=== PATIENT | female | born 1945 | race African-American/Black ===

== ENCOUNTER 2017-03-11 11:57 | Observation (INO) ==
--- NOTE | 2017-03-11 14:08 | Emergency Department Note ---
Disposition Clinical Impression: Chest pain Qualifiers: Chest pain type: unspecified Qualified Code(s): R07.9 - Chest pain, unspecified Disposition: Admitted As Inpatient Condition: Fair Referrals: Anatoliy Parra MD [Primary Care Provider] - Forms: ED Satisfaction Letter Time of Disposition: 15:47 General Adult HPI - General Chief complaint: ED Chest Pain Stated complaint: Chest/abd pain Time Seen by Provider: 03/11/17 13:39 Source: patient Limitations: no limitations Nursing Notes Reviewed: Yes Vital Signs Reviewed: Yes - History of Present Illness HPI Narrative: 71-year-old who was at work today became diaphoretic and was having chest pain. The patient states she's not had a stress test in the past. She also states she' s been having trouble swallowing food had a similar problem back in 2013 and is actually being scheduled to see GI for evaluation. She also states she had severe abdominal pain last night and is concerned as there is a family history of aneurysm. Pt Subjective Complaint: Chest pain and abdominal pain Onset (ago): Just [employer] Location: chest, abdomen Radiation: non-radiation Pain Severity: moderate Pain Scale: 6 Quality: aching Consistency: constant Improves with: nothing Worsens with: nothing Associated symptoms: Reports: chest pain Treatments Prior to Arrival: none - Related Data Allergies Allergy/AdvReac Type Severity Reaction Status Date / Time No Known Allergies Allergy Verified 03/11/17 12:26 All systems ED: reviewed and negative except as stated. Constitutional: Denies: fever, chills, weakness, weight change Eyes: Denies: eye pain, eye discharge, vision change ENT ED: Denies: ear pain, throat pain, dental pain, hearing loss, epistaxis, congestion, dysphagia Cardiovascular: Reports: chest pain. Denies: palpitations, dyspnea on exertion , edema, syncope Respiratory: Denies: cough, dyspnea, wheezes, hemoptysis, stridor Gastrointestinal: Reports: abdominal pain. Denies: nausea, vomiting, diarrhea, constipation, hematemesis, melena, hematochezia Genitourinary: Denies: dysuria, frequency, hematuria, discharge Musculoskeletal: Denies: back pain, neck pain, arthralgia, myalgia Integumentary: Denies: rash, abrasion, lesions Neurological: Denies: headache, weakness, numbness, paresthesias, confusion, abnormal gait, vertigo Psychiatric: Denies: anxiety, depression, suicidal thoughts, homicidal thoughts , auditory hallucinations, visual hallucinations Endocrine: Denies: fatigue Hematological/Lymphatic: Denies: easy bleeding, easy bruising Allergic/Immunologic: Denies: facial swelling, urticaria Past Medical History - Past Medical History Medical history: Reports: diabetes, hyperlipidemia, hypertension, renal disease Psychiatric history: Reports: no psych history - Social History Smoking Status: Never smoker Smokeless Tobacco Status: No Alcohol use: Reports: none Drug use: Reports: none Physical Exam - General Limitations: no limitations General appearance: alert - Head Head exam: atraumatic, normocephalic, normal inspection - Eye Eye exam: Present: normal appearance, PERRL, EOMI - ENT ENT exam: normal exam, normal oropharynx, mucous membranes moist - Neck Neck exam: Present: normal inspection, full ROM, trachea midline - Chest Chest inspection: Present: normal inspection, symmetric chest wall rise - Respiratory Respiratory exam: Present: normal lung sounds bilaterally - Cardiovascular Cardiovascular exam: Present: regular rate, normal rhythm, normal heart sounds - Abdominal Exam Abdominal exam: Present: soft, Non-Tender. Absent: tenderness, distention, guarding, rebound, rigidity, pulsatile mass - Extremities Exam Extremities exam: Present: normal inspection, full ROM. Absent: tenderness, pedal edema - Expanded Lower Extremity Exam Neurovascular/Tendon exam: Absent: motor deficit, sensory deficit, tendon deficit Gait: observed and normal - Back Exam Back exam: Present: normal inspection, full ROM. Absent: tenderness - Neurological Exam Neurological exam: Present: alert, oriented X3 - Psychiatric Psychiatric exam: Present: normal affect, normal mood - Skin Skin exam: Present: warm, dry, intact, normal color Course - Reevaluation(s) Reevaluation #1: 71-year-old with diabetes with with chest pain. Workup here is negative. We will admit. Time: 16:13 Vital Signs Temperature 98.4 F 03/11/17 12:21 Pulse Rate 74 03/11/17 12:21 Respiratory Rate 18 03/11/17 12:21 Blood Pressure 173/99 03/11/17 12:21 O2 Sat by Pulse Oximetry 94 03/11/17 12:21 Temperature 98.4 F 03/11/17 12:21 Pulse Rate 57 03/11/17 13:51 Respiratory Rate 15 03/11/17 13:51 Blood Pressure 161/101 03/11/17 13:51 O2 Sat by Pulse Oximetry 98 03/11/17 13:51 Oxygen Delivery Oxygen Delivery Room Air Medical Decision Making - Lab Data Lab results reviewed: Yes I reviewed the patient's lab results. Result diagrams: 03/11/17 13:50 03/11/17 13:50 Lab Results 03/11/17 03/11/17 03/11/17 Range/Units 13:49 13:50 13:50 WBC 13.0 H (4.3-11.1) K/mcL RBC 4.91 (3.82-4.97) M/mcL Hgb 14.3 (11.5-15.4) g/dL Hct 45.5 H (35.3-44.9) % MCV 92.7 (83.0-100.0) fL MCH 29.1 (28.0-33.3) pg MCHC 31.4 L (31.6-35.5) g/dL RDW 13.7 (11.5-14.5) % Plt Count 299 (140-400) K/mcL MPV 11.2 (9.4-12.4) fL Immature Gran % 0.6 (0-4) % Seg Neutrophils % 75.9 % Lymphocytes % 17.3 % Monocytes % 4.5 % Eosinophils % 1.2 % Basophils % 0.5 % Neutrophils # 9.9 H (1.6-8.9) K/mcL Lymphocytes # 2.2 (0.6-4.6) K/mcL Monocytes # 0.6 (0.0-1.3) K/mcL Eosinophils # 0.2 (0.0-0.6) K/mcL Basophils # 0.1 (0.0-0.2) K/mcL Sodium 139 (136-145) mEq/L Potassium 3.6 (3.5-5.1) mEq/L Chloride 108 H (98-107) mEq/L Carbon Dioxide 25 (23-29) mEq/L BUN 12 (8-23) mg/dL Creatinine 1.10 (0.60-1.20) mg/dL Est GFR ( Amer) 60 (> 60) Est GFR (Non-Af Amer) 49 L (> 60) BUN/Creatinine Ratio 11 (6-26) Glucose 80 (70-105) mg/dL Calculated Osmolality 287 (280-300) Calcium 9.5 (8.6-10.3) mg/dL Total Bilirubin 0.4 (0.3-1.0) mg/dL Direct Bilirubin 0.1 (0.0-0.2) mg/dL Indirect Bilirubin 0.3 (0.0-1.2) mg/dL AST 16 (13-39) Units/L ALT 9 (7-52) Units/L Alkaline Phosphatase 94 (34-104) Units/L Troponin I (< 0.04) ng/mL Serum Total Protein 7.9 (6.4-8.9) g/dL Albumin 4.3 (3.5-5.7) g/dL Globulin 3.6 H (2.4-3.5) g/dL Albumin/Globulin Ratio 1.2 (1.1-2.2) Amylase 44 (29-103) Units/L Lipase 31 (11-82) Units/L Urine Color Yellow (Yellow) Urine Clarity Clear (Clear) Urine pH 6.0 (5.0-8.0) pH Units Ur Specific [place] 1.015 (1.010-1.025) Urine Protein 30 H (Neg-Trace) mg/dL Urine Glucose (UA) Normal (Normal) mg/dL Urine Ketones Negative (Negative) mg/dL Urine Blood Negative (Negative) Urine Nitrite Negative (Negative) Urine Bilirubin Negative (Negative) Urine Urobilinogen Normal (Normal) mg/dL Ur Leukocyte Esterase Negative (Negative) Urine Microscopic RBC 0-3 (0-3) per hpf Urine Microscopic WBC 0-3 (0-3) per hpf Ur Squamous Epith Cells Many H (None-Few) per lpf Urine Bacteria None Seen (None-Few) per hpf Hyaline Casts None Seen (None-Few) per lpf Ur Culture Indicated? NO (NO) 03/11/17 Range/Units 13:50 WBC (4.3-11.1) K/mcL RBC (3.82-4.97) M/mcL Hgb (11.5-15.4) g/dL Hct (35.3-44.9) % MCV (83.0-100.0) fL MCH (28.0-33.3) pg MCHC (31.6-35.5) g/dL RDW (11.5-14.5) % Plt Count (140-400) K/mcL MPV (9.4-12.4) fL Immature Gran % (0-4) % Seg Neutrophils % % Lymphocytes % % Monocytes % % Eosinophils % % Basophils % % Neutrophils # (1.6-8.9) K/mcL Lymphocytes # (0.6-4.6) K/mcL Monocytes # (0.0-1.3) K/mcL Eosinophils # (0.0-0.6) K/mcL Basophils # (0.0-0.2) K/mcL Sodium (136-145) mEq/L Potassium (3.5-5.1) mEq/L Chloride (98-107) mEq/L Carbon Dioxide (23-29) mEq/L BUN (8-23) mg/dL Creatinine (0.60-1.20) mg/dL Est GFR ( Amer) (> 60) Est GFR (Non-Af Amer) (> 60) BUN/Creatinine Ratio (6-26) Glucose (70-105) mg/dL Calculated Osmolality (280-300) Calcium (8.6-10.3) mg/dL Total Bilirubin (0.3-1.0) mg/dL Direct Bilirubin (0.0-0.2) mg/dL Indirect Bilirubin (0.0-1.2) mg/dL AST (13-39) Units/L ALT (7-52) Units/L Alkaline Phosphatase (34-104) Units/L Troponin I < 0.03 (< 0.04) ng/mL Serum Total Protein (6.4-8.9) g/dL Albumin (3.5-5.7) g/dL Globulin (2.4-3.5) g/dL Albumin/Globulin Ratio (1.1-2.2) Amylase (29-103) Units/L Lipase (11-82) Units/L Urine Color (Yellow) Urine Clarity (Clear) Urine pH (5.0-8.0) pH Units Ur Specific [place] (1.010-1.025) Urine Protein (Neg-Trace) mg/dL Urine Glucose (UA) (Normal) mg/dL Urine Ketones (Negative) mg/dL Urine Blood (Negative) Urine Nitrite (Negative) Urine Bilirubin (Negative) Urine Urobilinogen (Normal) mg/dL Ur Leukocyte Esterase (Negative) Urine Microscopic RBC (0-3) per hpf Urine Microscopic WBC (0-3) per hpf Ur Squamous Epith Cells (None-Few) per lpf Urine Bacteria (None-Few) per hpf Hyaline Casts (None-Few) per lpf Ur Culture Indicated? (NO) - Radiology Data Radiology results reviewed: Yes I reviewed the patient's radiology results. Chest X-Ray 03/11/17 12:26 IMPRESSION: No acute findings D/ / Citlaly Mcgrath MD / Citlaly Mcgrath MD Interpreting Provider: Citlaly Mcgrath MD Abdomen/Pelvis CT 03/11/17 14:05 IMPRESSION: 1. No acute finding in the abdomen or pelvis to account for patient's abdominal pain. 2. Atrophic left kidney. 3. Sigmoid diverticulosis. No evidence of diverticulitis. D/ / 03/11/2017 14:45:33 Samuel Gray MD / joanne Interpreting Provider: Samuel Gray MD - EKG Data EKG #1 EKG attestation: Yes I reviewed and interpreted this EKG. EKG shows normal: sinus rhythm Rate: normal Rhythm: NSR Interpretation: no acute changes
[2017-03-11 14:09] LABS: Basophils # 0.1 K/mcL (0.0-0.2); Basophils % 0.5 %; Eosinophils # 0.2 K/mcL (0.0-0.6); Eosinophils % 1.2 %; Hematocrit 45.5 % (35.3-44.9); Hemoglobin 14.3 g/dL (11.5-15.4); Immature Granulocytes % 0.6 % (0-4); Lymphocytes # 2.2 K/mcL (0.6-4.6); Lymphocytes % 17.3 %; Mean Corpuscular HGB Conc 31.4 g/dL (31.6-35.5); Mean Corpuscular Hemoglobin 29.1 pg (28.0-33.3); Mean Corpuscular Volume 92.7 fL (83.0-100.0); Mean Platelet Volume 11.2 fL (9.4-12.4); Monocytes # 0.6 K/mcL (0.0-1.3); Monocytes % 4.5 %; Neutrophils # 9.9 K/mcL (1.6-8.9); Platelet Count 299 K/mcL (140-400); Red Blood Count 4.91 M/mcL (3.82-4.97); Red Cell Distribution Width 13.7 % (11.5-14.5); Segmented Neutrophils % 75.9 %
[2017-03-11 14:15] LABS: Calcium 9.5 mg/dL (8.6-10.3); Potassium 3.6 mEq/L (3.5-5.1)
[2017-03-11 14:15] LABS: Bilirubin,Urine Negative (Negative); Blood,Urine Negative (Negative); Clarity,Urine Clear (Clear); Color,Urine Yellow (Yellow); Glucose,Urine (UA) Normal (Normal); Ketones,Urine Negative (Negative); Leukocyte Esterase,Urine Negative (Negative); Nitrite,Urine Negative (Negative); Protein,Urine 30 mg/dL (Neg-Trace); Specific Gravity,Urine 1.015 (1.010-1.025); Urobilinogen,Urine Normal (Normal)
[2017-03-11 14:20] LABS: Bacteria,Urine None Seen per hpf (None-Few); Hyaline Casts,Urine None Seen per lpf (None-Few); RBC,Urine 0-3 per hpf (0-3); Squamous Epithelial Cell,Urine Many per lpf (None-Few); WBC,Urine 0-3 per hpf (0-3)
[2017-03-11 14:48] LABS: Albumin 4.3 g/dL (3.5-5.7); Bilirubin,Direct 0.1 mg/dL (0.0-0.2); Bilirubin,Indirect 0.3 mg/dL (0.0-1.2); Bilirubin,Total 0.4 mg/dL (0.3-1.0)
[2017-03-11 14:54] LABS: Albumin/Globulin Ratio 1.2 (1.1-2.2); Globulin 3.6 g/dL (2.4-3.5); Total Protein 7.9 g/dL (6.4-8.9)
--- NOTE | 2017-03-11 17:34 | Internal Med History&Physical ---
Date of Encounter: 03/11/17 Time of Encounter: 17:32 Assessment and Plan (1) HTN (hypertension) Current visit: Yes Status: Chronic Chronic and well-controlled Qualifiers: Hypertension type: essential hypertension Qualified Code(s): I10 - Essential (primary) hypertension (2) Diabetes 1.5, managed as type 2 Current visit: Yes Status: Chronic Chronic resume home medication and start on sliding scale (3) Hyperlipidemia Current visit: Yes Status: Chronic Chronic recheck in a.m. Qualifiers: Hyperlipidemia type: pure hypercholesterolemia Qualified Code(s): E78.00 - Pure hypercholesterolemia, unspecified; E78.0 - Pure hypercholesterolemia (4) Obesity Current visit: Yes Status: Chronic Qualifiers: Obesity type: due to excess calories Obesity classification: adult class 2 (BMI 35 - 39.9) Serious obesity comorbidity presence: unspecified whether serious comorbidity present Body mass index: unspecified BMI Qualified Code( s): E66.09 - Other obesity due to excess calories (5) Chest pain Current visit: Yes Status: Acute Patient with multiple risk factors hypertension obesity diabetes high cholesterol presenting with chest pain need further cardiac evaluation will obtain 2-D echo and nuclear stress test in a.m. Qualifiers: Chest pain type: precordial pain Qualified Code(s): R07.2 - Precordial pain Internal Medicine - H&P: HPI Chief complaint: chest pain Admitted From: Emergency Dept Plans for Post Hospital Care: Transfer Inp Rehab Fac History of present illness: Ms. Watkins is a 71 year old female Patient with history of diabetes, obesity, high cholesterol, hypertension, patient was at work and became diaphoretic and developed chest pain describes a pressure and came into the emergency room she is now chest pain-free EKG is unremarkable also has some abdominal pain CT of the abdomen is unremarkable so far troponin is negative she be admitted for serial troponin stress test in a.m. Past Med Surg Social Fam HX - Past Medical History Medical history: diabetes, hyperlipidemia, hypertension, renal disease Psychiatric history: no psych history - Social History Smoking Status: Never smoker Smokeless Tobacco Status: No Alcohol use: none Drug use: none Internal Medicine - H&P: Meds 3 Allergy/AdvReac Type Severity Reaction Status Date / Time No Known Allergies Allergy Verified 03/11/17 12:26 All Systems PM: A 10-system review of systems was performed and is negative for pertinent findings except as documented above in the HPI. - Constitutional Constitutional: no chills, no fever(s), no night sweats - EENT Eyes: no change in vision, no discharge, no pain, no photophobia Ears: no ear discharge, no ear pain, no tinnitus Nose, mouth and throat: no dysphagia, no nasal discharge, no neck pain, no sore throat - Cardiovascular Cardiovascular ROS IM: no chest pain, no diaphoresis, no dyspnea, no lightheadedness, no palpitations, no syncope - Respiratory Respiratory: no cough, no dyspnea, no wheezing, no excessive phlegm production - Gastrointestinal Gastrointestinal: no abdominal pain, no diarrhea, no hematemesis, no hematochezia, no melena, no nausea, no vomiting - Genitourinary Genitourinary: no change in urinary stream, no dysuria, no flank pain, no hematuria - Musculoskeletal Musculoskeletal ROS IM: no numbness, no tingling - Integumentary Integumentary IM: no rash, no unusual bruising - Neurological Neurological ROS: no confusion, no convulsions, no focal weakness, no numbness, no tingling, no tremor(s) - Hematologic/Lymphatic Hematologic/Lymphatic: no easy bruising - Constitutional Vitals: Temp Pulse Resp BP Pulse Ox 98.4 F 55 15 149/74 95 03/11/17 12:21 03/11/17 17:08 03/11/17 17:08 03/11/17 17:08 03/11/17 17:08 - Head Head exam: Present: atraumatic, normocephalic - Eye Eye exam: Present: PERRL, conjuntiva pink, sclera anicteric Pupils: Present: PERRL - Neck Neck exam general surgery: Present: supple, trachea midline. Absent: lymphadenopathy - Respiratory Respiratory exam: Present: CTAB. Absent: accessory muscle use, rales, rhonchi, wheezes - Cardiovascular Cardiovascular exam: Present: RRR, +S1, +S2. Absent: diastolic murmur, gallop, rubs, systolic murmur - GI/Abdominal GI/Abdominal exam: Present: normal bowel sounds, soft, no peritoneal signs. Absent: distended, tenderness - Extremities Exam Extremities exam: Present: warm, radial pulses palpable and symmetrical. Absent : calf tenderness, cyanotic, pedal edema - Neurological Exam Neurological exam: Present: CN II-XII intact, oriented X3, no focal deficits. Absent: pronater drift, facial droop, speech deficit - Skin Skin exam: Present: dry, intact Internal Med - H&P Results - Labs CBC & Chem 7: 03/11/17 13:50 03/11/17 13:50
[2017-03-11] MEDS ORDERED: Acetaminophen 325 MG TABLET PO PRN (17:38)
[2017-03-11] MEDS ORDERED: Naloxone 0.4 MG/ML INJ IVP PRN (17:38)
[2017-03-11] MEDS ORDERED: *HR* HYDROcodone/Acet 5/325 mg TABLET PO PRN (17:38)
[2017-03-11] MEDS: 0.9 % Sodium Chloride 1,000 ML IVC SCH (20:51)
[2017-03-12 04:13] LABS: Alanine Aminotransferase 8 Units/L (7-52); Albumin 3.6 g/dL (3.5-5.7); Albumin/Globulin Ratio 1.2 (1.1-2.2); Alkaline Phosphatase 76 Units/L (34-104); Aspartate Amino Transferase 13 Units/L (13-39); BUN/Creatinine Ratio 11 (6-26); Bilirubin,Total 0.6 mg/dL (0.3-1.0); Blood Urea Nitrogen 11 mg/dL (8-23); Calcium 8.9 mg/dL (8.6-10.3); Carbon Dioxide 25 mEq/L (23-29); Chloride 110 mEq/L (98-107); Chol/HDL Ratio 3.5 (0-4.9); Cholesterol 134 mg/dL (< 200); Globulin 2.9 g/dL (2.4-3.5); Glucose 86 mg/dL (70-105); HDL Cholesterol 38 mg/dL (40-59); LDL Cholesterol,Calculated 76 mg/dL (0-99); Magnesium 2.1 mg/dL (1.6-2.6); Osmolality,Calculated 287 (280-300); Potassium 3.4 mEq/L (3.5-5.1); Sodium 139 mEq/L (136-145); Total Protein 6.5 g/dL (6.4-8.9); Triglycerides 101 mg/dL (< 150); eGFR For African Americans > 60 (> 60); eGFR For Non-African Americans 54 (> 60)
[2017-03-12] MEDS ORDERED: Regadenoson 0.4 MG/5 ML SYRINGE IVP ONE (06:01)
[2017-03-12 10:50] LABS: Basophils # 0.1 K/mcL (0.0-0.2); Basophils % 0.5 %; Eosinophils # 0.1 K/mcL (0.0-0.6); Eosinophils % 1.1 %; Hematocrit 42.5 % (35.3-44.9); Hemoglobin 13.2 g/dL (11.5-15.4); Immature Granulocytes % 0.5 % (0-4); Lymphocytes # 1.8 K/mcL (0.6-4.6); Lymphocytes % 17.2 %; Mean Corpuscular HGB Conc 31.1 g/dL (31.6-35.5); Mean Corpuscular Hemoglobin 28.7 pg (28.0-33.3); Mean Corpuscular Volume 92.4 fL (83.0-100.0); Mean Platelet Volume 10.3 fL (9.4-12.4); Monocytes # 0.6 K/mcL (0.0-1.3); Monocytes % 5.8 %; Neutrophils # 7.8 K/mcL (1.6-8.9); Platelet Count 337 K/mcL (140-400); Red Cell Distribution Width 13.7 % (11.5-14.5); Segmented Neutrophils % 74.9 %
[2017-03-12] MEDS ORDERED: Nitroglycerin 0.4 MG TAB.SUBL SL PRN (11:21)
[2017-03-12] MEDS ORDERED: Dextrose Gel 15 GM/37.5 ML TUBE PO PRN ×2 (11:22)
[2017-03-12] MEDS ORDERED: D5% in Water 1,000 ML IVC PRN (11:22)
[2017-03-12] MEDS ORDERED: *HR* Dextrose 50 % in Water (Syg) 50 ML SYRINGE IVP PRN (11:22)
--- NOTE | 2017-03-12 11:25 | Internal Med Progress Note ---
Date of Encounter: 03/12/17 Time of Encounter: 11:23 - Assessment and plan (1) Chest pain Current Visit: Yes Status: Acute Assessment and plan: Improved since admission awaiting stress test results 2D echo reported LVEF of 60%, mild LV diastolic dysfunction, mild MR, Mild AR, no pulm htn serial TNI negative nitro SL prn chest pain Qualifiers: Chest pain type: precordial pain Qualified Code(s): R07.2 - Precordial pain (2) Dysphagia Current Visit: Yes Status: Chronic Assessment and plan: outpatient EGD and colonoscopy to be scheduled as per patient Diet started as per speech therapist's recommendation Qualifiers: Dysphagia type: unspecified Qualified Code(s): R13.10 - Dysphagia, unspecified (3) Diabetes mellitus Current Visit: Yes Status: Chronic Assessment and plan: holding oral antihyperglycemic agents sliding scale insulin algorithm monitor FS and BG ADA diet Qualifiers: Diabetes mellitus type: type 2 Diabetes mellitus complication status: with unspecified complications Diabetes mellitus residential insulin use: without residential use Qualified Code(s): E11.8 - Type 2 diabetes mellitus with unspecified complications (4) HTN (hypertension) Current Visit: Yes Status: Chronic Assessment and plan: BP within acceptable range continue home medications Qualifiers: Hypertension type: essential hypertension Qualified Code(s): I10 - Essential (primary) hypertension (5) Hyperlipidemia Current Visit: Yes Status: Chronic Qualifiers: Hyperlipidemia type: pure hypercholesterolemia Qualified Code(s): E78.00 - Pure hypercholesterolemia, unspecified; E78.0 - Pure hypercholesterolemia (6) Obesity Current Visit: Yes Status: Chronic Qualifiers: Obesity type: due to excess calories Obesity classification: adult class 2 (BMI 35 - 39.9) Serious obesity comorbidity presence: unspecified whether serious comorbidity present Body mass index: unspecified BMI Qualified Code( s): E66.09 - Other obesity due to excess calories (7) DVT prophylaxis Current Visit: Yes Status: Acute Assessment and plan: Heparin SQ - Subjective Interval history: Patient seen and examined at bedside. S/P Nuclear stress test and reports of feeling better since her arrival to the hospital States her chest pain persists but improved since hospitalization. Describes the pain as pressure like localized substernal chest pain. denies any alleviating or exacerbating factors Denies any shortness of breath Reports of having dysphagia and is supposed to get EGD/Colonoscopy as an outpatient Diet started as per speech therapy evaluation - Constitutional Vitals: Temp Pulse Resp BP Pulse Ox 98.2 F 59 16 134/77 94 03/12/17 11:11 03/12/17 11:11 03/12/17 09:40 03/12/17 11:11 03/12/17 11:11 General appearance: Present: A&O X 3 (weak ), no acute distress, obese, answers questions appropriately - Head Head exam: Present: atraumatic, normocephalic - Eye Eye exam: Present: conjuntiva pink, sclera anicteric - Respiratory Respiratory exam: Present: CTAB. Absent: accessory muscle use, rales, rhonchi, wheezes - Cardiovascular Cardiovascular exam: Present: RRR, +S1, +S2. Absent: diastolic murmur, gallop, rubs, systolic murmur - GI/Abdominal GI/Abdominal exam: Present: normal bowel sounds, soft, no peritoneal signs. Absent: distended, tenderness - Extremities Exam Extremities exam: Present: warm, radial pulses palpable and symmetrical. Absent : calf tenderness, pedal edema - Neurological Exam Neurological exam: Present: alert, oriented X3 - Psychiatric Psychiatric exam: Present: normal affect, normal mood Internal Medicine: Result - Labs CBC & Chem 7: 03/12/17 10:02 03/12/17 03:13 Labs: Short CBC 03/12/17 Range/Units 10:02 WBC 10.4 (4.3-11.1) K/mcL Hgb 13.2 (11.5-15.4) g/dL Hct 42.5 (35.3-44.9) % Plt Count 337 (140-400) K/mcL Neutrophils # 7.8 (1.6-8.9) K/mcL BMP 03/12/17 03:13 Sodium 139 Potassium 3.4 L Chloride 110 H Carbon Dioxide 25 BUN 11 Creatinine 1.02 Glucose 86 Calcium 8.9 Cardiac Enzymes 03/11/17 03/12/17 03/12/17 Range/Units 19:52 03:13 10:02 Troponin I < 0.03 < 0.03 < 0.03 (< 0.04) ng/mL Liver Function 03/12/17 Range/Units 03:13 Total Bilirubin 0.6 (0.3-1.0) mg/dL AST 13 (13-39) Units/L ALT 8 (7-52) Units/L Alkaline Phosphatase 76 (34-104) Units/L Albumin 3.6 (3.5-5.7) g/dL - Impressions Impressions Echocardiogram 03/12/17 17:41 Impressions: LVEF 60%. Mild left ventricular diastolic dysfunction. Normal right ventricular structure and function. Mild mitral regurgitation. Mild aortic regurgitation. Mild tricuspid regurgitation. No pulmonary hypertension. Left Ventricular Wall Motion: Rest Echo Findings All wall segments showed normal motion. Findings: Study Quality * Technically adequate exam. ECG Findings * Sinus bradycardia. Left Ventricle * LVEF 60%. * Normal LV chamber size, wall thickness and function. * Mild left ventricular diastolic dysfunction. Right Ventricle * Normal right ventricular structure and function. Left Atrium * Normal left atrial size. Right Atrium * Normal right atrial size. Mitral Valve * Normal mitral valve structure. * No mitral stenosis. * Mild mitral regurgitation. Aortic Valve * Mild aortic regurgitation. * Trileaflet aortic valve. * No aortic stenosis. Tricuspid Valve * Tricuspid valve not well visualized. * Mild tricuspid regurgitation. * Estimated RA pressure is 3 mmHg. * Estimated RVSP is 24 mmHg. * No pulmonary hypertension. Pulmonic Valve * Pulmonic valve is not well visualized. * No pulmonic stenosis. * Trace pulmonic regurgitation. Pulmonary Artery * Pulmonary artery not well visualized. Aorta * Normally sized aortic root. Pericardium * There is no pericardial effusion present. Interatrial Septum * No evidence of PFO by color Doppler. IVC * Normal IVC dimensions and inspiratory collapse. Consult Discharge Plan - Plan Referrals: Anatoliy Parra MD [Primary Care Provider] -
[2017-03-12] MEDS: Insulin LISPRO 300 UNITS/3 ML VIAL SQ SCH ×2 (13:19→17:34)
[2017-03-12] MEDS: *HR* Heparin 5,000 UNIT/ML VIAL SQ SCH ×2 (13:50→21:13)
[2017-03-12] MEDS: Aspirin Enteric Coated 81 MG Tablet PO SCH (13:50)
--- NOTE | 2017-03-12 14:14 | Electrocardiograph Report ---
[place] [id number] Test Date: 2017-03-11 Pat Name: Olimpia Watkins Department: 102 Room: 3B64 Gender: F [employer]ing [employer] Operator: Corby : 1945 Requested By: Andrey Berger Order Number: [id number] Reading MD: Gilbert Britton DO Measurements Intervals [place] Rate: 68 P: 26 ND: 165 QRS: 18 QRSD: 73 T: 20 QT: 401 QTc: 417 Interpretive Statements Sinus rhythm Nonspecific ST-T changes Electronically Signed On 03-12-2017 14:12:31 EST by Gilbert Britton DO
[2017-03-12] MEDS: 0.9 % Sodium Chloride 1,000 ML IVC SCH (21:47)
[2017-03-13] MEDS: Insulin LISPRO 300 UNITS/3 ML VIAL SQ SCH ×5 (00:23→20:49)
[2017-03-13 05:24] LABS: Basophils % 0.5 %; Eosinophils # 0.2 K/mcL (0.0-0.6); Eosinophils % 2.3 %; Hematocrit 39.5 % (35.3-44.9); Hemoglobin 12.7 g/dL (11.5-15.4); Immature Granulocytes % 0.5 % (0-4); Lymphocytes # 1.7 K/mcL (0.6-4.6); Lymphocytes % 19.3 %; Mean Corpuscular HGB Conc 32.2 g/dL (31.6-35.5); Mean Corpuscular Hemoglobin 29.3 pg (28.0-33.3); Mean Corpuscular Volume 91.2 fL (83.0-100.0); Monocytes # 0.6 K/mcL (0.0-1.3); Monocytes % 6.4 %; Neutrophils # 6.1 K/mcL (1.6-8.9); Platelet Count 306 K/mcL (140-400); Red Blood Count 4.33 M/mcL (3.82-4.97); Red Cell Distribution Width 13.5 % (11.5-14.5)
[2017-03-13] MEDS: *HR* Heparin 5,000 UNIT/ML VIAL SQ SCH ×3 (05:32→20:28)
[2017-03-13 06:02] LABS: BUN/Creatinine Ratio 10 (6-26); Blood Urea Nitrogen 10 mg/dL (8-23); Carbon Dioxide 23 mEq/L (23-29); Chloride 109 mEq/L (98-107); Glucose 95 mg/dL (70-105); Osmolality,Calculated 289 (280-300); Phosphorous 3.6 mg/dL (2.7-4.5); Potassium 3.7 mEq/L (3.5-5.1); Sodium 140 mEq/L (136-145); eGFR For African Americans > 60 (> 60); eGFR For Non-African Americans 53 (> 60)
[2017-03-13] MEDS: Metoprolol XL (24 HR) Succ 25 MG TAB.ER.24H PO SCH (08:37)
[2017-03-13] MEDS: Aspirin Enteric Coated 81 MG Tablet PO SCH (08:37)
--- NOTE | 2017-03-13 13:27 | Cardiology Consult Note ---
<Karlos Michel - Last Filed: 03/13/17 14:14> Date of Encounter: 03/13/17 Time of Encounter: 14:14 Assessment and Plan (1) Abnormal stress ECG Current Visit: Yes Status: Acute Stress test reviewed with patient and family-Perfusion imaging was negative for ischemia or infarct. Pharmacologic stress ECG is non-diagnostic for ischemia. Nonspecific ST-T changes are present during stress: During stage 1 of stress, T waves invert diffusely then during stage 2 return upright with flattened ST segments. Gated EF = 67%. TTE showed:LVEF 60%. Mild left ventricular diastolic dysfunction. Normal right ventricular structure and function. Mild mitral regurgitation. Mild aortic regurgitation. Mild tricuspid regurgitation. No pulmonary hypertension. Troponin negative. She has typical chest pain symptoms. Cardiac risk factor include HTN, DM, HLD. I discussed medical management verses [facility]. Patient has solitary kidney and agrees with trailing medical management at this point to avoid kidney injury. This is reasonable in the setting of no high risk findings in her cardiac work- up. Recommend asa 81 mg daily. Change pravastatin to lipitor. Continue beta- susan. Add NTG to medications. NTG teaching given. Out-patient f/u with cardiology to re-assess in 1-2 weeks will be scheduled. Discussion w patient/family: The assessment and plan as outlined above was discussed with the patient and/or family members who expressed understanding and agreement. All questions were answered. Thank you for involving us in the care of your patient. Please call with any questions. History of Present Illness Consult date: 03/13/17 Requesting physician: Shanice Mckay Consult reason: Chest pain, abnormal stress EKG Chief complaint: Chest pain History of present illness: Ms. Watkins is a 71 year old female with a past medical history of HTN, DM type II, HLD, and solitary kidney with stage II CKD. She presented to the ED with c/o mid-sternal chest pressure radiating to her neck. Her pain was associated with SOB and diaphoresis. Her pain was intermittent and started on Friday. She denies aggravating factors. She had recurrent chest pain today that was relieved with 1 SL NTG. Her cardiac workup included troponin negative x3, EKG showed SR with no acute ST changes. TTE shows preserved EF. She underwent stress test yesterday. Perfusion images were negative for ischemia or infarct. EKG showed t wave inversion and T wave flattening starting in stage I , nonspecific finding. Past Med Surg Social Fam HX - Past Medical History Attestation: Yes The following information was validated with the patient. Medical history: DVT, diabetes, hyperlipidemia, hypertension, renal disease Psychiatric history: no psych history - Past Surgical History Surgical History: hysterectomy - Social History Smoking Status: 2nd Hand Smoke Exposure Smokeless Tobacco Status: No Alcohol use: none Drug use: none Medications and Allergies GlipiZIDE XL (24 HR) [Glucotrol XL] 2.5 mg PO DAILY 03/12/17 [History] Metoprolol XL (24 HR) Succ [Toprol XL] 25 mg PO DAILY 03/12/17 [History] Pantoprazole Sodium 40 mg PO DAILY 03/12/17 [History] Pravastatin Sodium 10 mg PO DAILY 03/12/17 [History] 3 Allergy/AdvReac Type Severity Reaction Status Date / Time No Known Allergies Allergy Verified 03/12/17 10:05 All Systems Review: A 10-system review of systems was performed and is negative for pertinent findings except as documented above in the HPI. Physical Examination Vital Signs, Last 4 Hours Temp Pulse Resp BP Pulse Ox 03/13/17 11:39 98.1 F 77 16 150/78 90 General: Conversant, No Apparent Distress HEENT: Atraumatic, Normocephaly, Mucus Membranes Moist Neck: No JVD, Normal carotid pulses Cardiac: Reg Rate and Rhythm, Normal S1 and S2, No Murmur Lungs: Normal Breath Sounds, No Wheeze, Rales, Rhonchi Neuro: Alert and responsive, No focal deficits noted Abdomen: Soft, Non-Tender Skin: No rashes noted on visualized skin Musculoskeletal: No Chest Wall Tenderness Extremities: No Clubbing, No Cyanosis, No Edema, Normal Pulses Results 03/13/17 05:07 03/13/17 05:07 Lab Results 03/13/17 03/13/17 05:07 05:07 WBC 8.6 Hgb 12.7 Hct 39.5 Plt Count 306 Sodium 140 Potassium 3.7 Chloride 109 H Carbon Dioxide 23 BUN 10 Creatinine 1.04 Glucose 95 Calcium 9.0 Magnesium 2.0 - Imaging and Cardiology Echo: report reviewed - EKG Interpretation EKG results cardiology: personally reviewed Consult Discharge Plan - Plan Referrals: Anatoliy Parra MD [Primary Care Provider] - 03/20/17 2:15 pm <Eagle De La Cruz - Last Filed: 03/13/17 15:17> Date of Encounter: 03/13/17 - Attending Attestation I have personally performed a face to face evaluation on this patient. I have reviewed and agree with the care plan. History and Exam by me shows: Atypical chest pain, stress test is essentially negative. A trial of medical mgmt. recommended. Assessment and Plan Discussion w patient/family: The assessment and plan as outlined above was discussed with the patient and/or family members who expressed understanding and agreement. All questions were answered. Thank you for involving us in the care of your patient. Please call with any questions. History of Present Illness History of present illness: Ms. Watkins is a 71 year old female All Systems Review: A 10-system review of systems was performed and is negative for pertinent findings except as documented above in the HPI. Physical Examination Vital Signs, Last 4 Hours Temp Pulse Resp BP Pulse Ox 03/13/17 11:39 98.1 F 77 16 150/78 90 Results 03/13/17 05:07 03/13/17 05:07 Lab Results 03/13/17 03/13/17 05:07 05:07 WBC 8.6 Hgb 12.7 Hct 39.5 Plt Count 306 Sodium 140 Potassium 3.7 Chloride 109 H Carbon Dioxide 23 BUN 10 Creatinine 1.04 Glucose 95 Calcium 9.0 Magnesium 2.0
--- NOTE | 2017-03-13 15:01 | Internal Med Progress Note ---
Date of Encounter: 03/13/17 Time of Encounter: 08:15 - Assessment and plan (1) Chest pain Current Visit: Yes Status: Acute Assessment and plan: Typical chest pain, improved with SL Nitro cardiology evaluation appreciated pt to be started on Imdur continue ASA, lipitor 2D echo reported LVEF of 60%, mild LV diastolic dysfunction, mild MR, Mild AR, no pulm htn will monitor overnight and tentative d/c in am if remains clinically stable Qualifiers: Chest pain type: precordial pain Qualified Code(s): R07.2 - Precordial pain (2) Dysphagia Current Visit: Yes Status: Chronic Assessment and plan: outpatient EGD and colonoscopy to be scheduled as per patient Diet started as per speech therapist's recommendation Qualifiers: Dysphagia type: unspecified Qualified Code(s): R13.10 - Dysphagia, unspecified (3) Diabetes mellitus Current Visit: Yes Status: Chronic Assessment and plan: holding oral antihyperglycemic agents sliding scale insulin algorithm monitor FS and BG ADA diet Qualifiers: Diabetes mellitus type: type 2 Diabetes mellitus complication status: with unspecified complications Diabetes mellitus terminal worker insulin use: without longterm use Qualified Code(s): E11.8 - Type 2 diabetes mellitus with unspecified complications (4) HTN (hypertension) Current Visit: Yes Status: Chronic Assessment and plan: BP within acceptable range continue home medications Qualifiers: Hypertension type: essential hypertension Qualified Code(s): I10 - Essential (primary) hypertension (5) Hyperlipidemia Current Visit: Yes Status: Chronic Assessment and plan: continue Lipitor Qualifiers: Hyperlipidemia type: pure hypercholesterolemia Qualified Code(s): E78.00 - Pure hypercholesterolemia, unspecified; E78.0 - Pure hypercholesterolemia (6) Obesity Current Visit: Yes Status: Chronic Qualifiers: Obesity type: due to excess calories Obesity classification: adult class 2 (BMI 35 - 39.9) Serious obesity comorbidity presence: unspecified whether serious comorbidity present Body mass index: unspecified BMI Qualified Code( s): E66.09 - Other obesity due to excess calories (7) DVT prophylaxis Current Visit: Yes Status: Acute Assessment and plan: Heparin SQ - Subjective Interval history: Patient seen and examined at bedside. S/P Nuclear stress test and reports of feeling better since her arrival to the hospital. s/p nuclear stress test, which was negative for perfusion defect but noted to have EKG changes. Pt reports of still having pressure like chest pain which improved with SL Nitro due to which cardiology was consulted. Pt states her chest pain resolved however she had a mild headache with nitro SL. Cardiology evaluation appreciated, pt started on ASA, Lipitor, and Imdur (to be added) will monitor patient overnight with addition of Imdur and tentative discharge in am if remains clinically stable. - Constitutional Vitals: Temp Pulse Resp BP Pulse Ox 98.1 F 77 16 150/78 90 03/13/17 11:39 03/13/17 11:39 03/13/17 11:39 03/13/17 11:39 03/13/17 11:39 General appearance: Present: A&O X 3 (weak ), no acute distress, obese, answers questions appropriately - Head Head exam: Present: atraumatic, normocephalic - Eye Eye exam: Present: conjuntiva pink, sclera anicteric - Respiratory Respiratory exam: Present: CTAB. Absent: accessory muscle use, rales, rhonchi, wheezes - Cardiovascular Cardiovascular exam: Present: RRR, +S1, +S2. Absent: diastolic murmur, gallop, rubs, systolic murmur - GI/Abdominal GI/Abdominal exam: Present: normal bowel sounds, soft, no peritoneal signs. Absent: distended, tenderness - Extremities Exam Extremities exam: Present: warm, radial pulses palpable and symmetrical. Absent : calf tenderness - Neurological Exam Neurological exam: Present: alert, oriented X3 - Psychiatric Psychiatric exam: Present: normal affect, normal mood Internal Medicine: Result - Labs CBC & Chem 7: 03/13/17 05:07 03/13/17 05:07 Labs: Short CBC 03/13/17 Range/Units 05:07 WBC 8.6 (4.3-11.1) K/mcL Hgb 12.7 (11.5-15.4) g/dL Hct 39.5 (35.3-44.9) % Plt Count 306 (140-400) K/mcL Neutrophils # 6.1 (1.6-8.9) K/mcL BMP 03/13/17 05:07 Sodium 140 Potassium 3.7 Chloride 109 H Carbon Dioxide 23 BUN 10 Creatinine 1.04 Glucose 95 Calcium 9.0 Consult Discharge Plan - Plan Referrals: Anatoliy Parra MD [Primary Care Provider] - 03/20/17 2:15 pm
[2017-03-13] MEDS: Isosorbide MONOnitrate (24 HR) 30 MG TAB.ER.24H PO SCH (17:38)
[2017-03-14] MEDS: *HR* Heparin 5,000 UNIT/ML VIAL SQ SCH (05:13)
[2017-03-14 06:30] LABS: Basophils # 0.1 K/mcL (0.0-0.2); Basophils % 0.5 %; Eosinophils # 0.2 K/mcL (0.0-0.6); Eosinophils % 1.7 %; Hematocrit 38.1 % (35.3-44.9); Hemoglobin 12.2 g/dL (11.5-15.4); Immature Granulocytes % 0.5 % (0-4); Lymphocytes # 1.7 K/mcL (0.6-4.6); Lymphocytes % 18.2 %; Mean Corpuscular Hemoglobin 29.3 pg (28.0-33.3); Mean Corpuscular Volume 91.4 fL (83.0-100.0); Mean Platelet Volume 10.5 fL (9.4-12.4); Monocytes # 0.6 K/mcL (0.0-1.3); Monocytes % 6.4 %; Neutrophils # 6.8 K/mcL (1.6-8.9); Platelet Count 300 K/mcL (140-400); Red Blood Count 4.17 M/mcL (3.82-4.97); Red Cell Distribution Width 13.5 % (11.5-14.5); Segmented Neutrophils % 72.7 %
[2017-03-14 06:55] LABS: BUN/Creatinine Ratio 13 (6-26); Blood Urea Nitrogen 14 mg/dL (8-23); Calcium 8.8 mg/dL (8.6-10.3); Carbon Dioxide 24 mEq/L (23-29); Chloride 109 mEq/L (98-107); Glucose 101 mg/dL (70-105); Magnesium 2.1 mg/dL (1.6-2.6); Osmolality,Calculated 289 (280-300); Phosphorous 3.9 mg/dL (2.7-4.5); Potassium 3.8 mEq/L (3.5-5.1); Sodium 139 mEq/L (136-145); eGFR For African Americans > 60 (> 60); eGFR For Non-African Americans 51 (> 60)
[2017-03-14] MEDS: Insulin LISPRO 300 UNITS/3 ML VIAL SQ SCH ×2 (08:31→12:16)
[2017-03-14] MEDS: Metoprolol XL (24 HR) Succ 25 MG TAB.ER.24H PO SCH (08:33)
[2017-03-14] MEDS: Isosorbide MONOnitrate (24 HR) 30 MG TAB.ER.24H PO SCH (08:33)
[2017-03-14] MEDS: Aspirin Enteric Coated 81 MG Tablet PO SCH (08:33)
[2017-03-14] MEDS ORDERED: Metoprolol XL (24 HR) Succ 25 MG TAB.ER.24H PO SCH (09:05)
--- NOTE | 2017-03-14 10:07 | Discharge Summary ---
Date of Encounter: 03/14/17 Time of Encounter: 09:35 - Discharge Diagnosis (1) Chest pain Priority: Primary Status: Resolved Qualifiers: Chest pain type: precordial pain Qualified Code(s): R07.2 - Precordial pain (2) Dysphagia Priority: Secondary Status: Chronic Qualifiers: Dysphagia type: unspecified Qualified Code(s): R13.10 - Dysphagia, unspecified (3) Diabetes mellitus Priority: Secondary Status: Chronic Qualifiers: Diabetes mellitus type: type 2 Diabetes mellitus complication status: with unspecified complications Diabetes mellitus assisted insulin use: without dedicated intermodal truck driver use Qualified Code(s): E11.8 - Type 2 diabetes mellitus with unspecified complications (4) HTN (hypertension) Priority: Secondary Status: Chronic Qualifiers: Hypertension type: essential hypertension Qualified Code(s): I10 - Essential (primary) hypertension (5) Hyperlipidemia Priority: Secondary Status: Chronic Qualifiers: Hyperlipidemia type: pure hypercholesterolemia Qualified Code(s): E78.00 - Pure hypercholesterolemia, unspecified; E78.0 - Pure hypercholesterolemia (6) Obesity Priority: Secondary Status: Chronic Qualifiers: Obesity type: due to excess calories Obesity classification: adult class 2 (BMI 35 - 39.9) Serious obesity comorbidity presence: unspecified whether serious comorbidity present Body mass index: unspecified BMI Qualified Code( s): E66.09 - Other obesity due to excess calories (7) DVT prophylaxis Priority: Secondary Status: Acute - Discharge Medications Prescriptions: Aspirin Enteric Coated [Aspirin EC] 81 mg PO DAILY #30 tablet. Atorvastatin [Lipitor] 40 mg PO HS #30 tablet Isosorbide MONOnitrate (24 HR) [Imdur] 30 mg PO DAILY #30 tab.er.24h Metoprolol XL (24 HR) Succ [Toprol Xl] 12.5 mg PO DAILY #30 tab.er.24h Home Medications: GlipiZIDE XL (24 HR) [Glucotrol XL] 2.5 mg PO DAILY 03/12/17 [History] Pantoprazole Sodium 40 mg PO DAILY 03/12/17 [History] Aspirin Enteric Coated [Aspirin EC] 81 mg PO DAILY #30 tablet. 03/14/17 [Rx] Atorvastatin [Lipitor] 40 mg PO HS #30 tablet 03/14/17 [Rx] Isosorbide MONOnitrate (24 HR) [Imdur] 30 mg PO DAILY #30 tab.er.24h 03/14/17 [ Rx] Metoprolol XL (24 HR) Succ [Toprol Xl] 12.5 mg PO DAILY #30 tab.er.24h 03/14/17 [Rx] Allergies/Adverse Reactions: 3 Allergy/AdvReac Type Severity Reaction Status Date / Time No Known Allergies Allergy Verified 03/12/17 10:05 Procedures/tests Complete & Pending: Procedures Performed prior 72 hours Category Date Time Status NM sunita perf SPECT multi [NM] Routine Exams 03/12/17 05:54 Taken EV echocardiogram Routine Y 03/12/17 17:41 Completed SP pharm nuclear stress Routine Y 03/12/17 07:15 Completed Date of admission: 03/11/17 16:41 Primary care physician: Anatoliy Parra MD Consults: 03/12/17 05:52 Consult to Speech Therapy [CONS] Routine Comment: Evaluate, develop and implement POC Reason for Consult: Difficulty swallowing, failed nursing bedside swallow Call Completed: No 03/12/17 11:21 Consult to Physical Therapy [CONS] Stat Comment: Evaluate, develop and implement POC Reason for Consult: evaluation for placement 03/13/17 09:29 Consult to Cardiology [CONS] Routine Comment: Consulting Provider: Cardiology Alfreda Reason for Consult: chest pain Call Completed: Yes Discharging clinician: Shanice Mckay Anticipated date of discharge: 03/14/17 - Patient Status Disposition: Home, Self-Care Condition: Good Functional capacity at discharge: independent ambulation Overall status at discharge: patient is back to baseline - Discharge Instructions Follow Up With: Anatoliy Parra MD [Primary Care Provider] - 03/20/17 2:15 pm Eagle De La Cruz MD [Partnered Physician] - (Office will call patient with date and time of appointment. ) Additional Instructions: Please follow up with your primary care physician within five days after your discharge from the hospital. Please follow up with your cryptologic supervisor within one to two weeks after your discharge from the hospital. Your home medications have been changed as follows: 1. Metoprolol has been decreased to 12.5mg once a day 2. Pravastatin has been discontinued 3. Atorvastatin has been added once a day 4. Aspirin, Imdur have been added. Please closely monitor your blood pressure and HR at home. Do not take Metoprolol if your systolic blood pressure is less than 100 or if your Heart rate is less than 50. Please keep a daily log of your blood pressure and heart rate. Take this log with you to your primary care physician and cryptologic supervisor's appointment. Resume all other medications as prescribed by your primary care physician. Please seek medical help immediately if chest pain occurs. - Diet and Activity Activity: increase activity as tolerated Diet: diabetic diet, low fat, low cholesterol, low salt diet Hospital course: Ms. Watkins is a 71 year old female with PMH Of DM, HLD, dysphagia, CKD who presented to the ER for evaluation of chest pain. She was further admitted for work up for typical chest pain. She underwent nuclear stress test which was negative for ischemic perfusion defect however had EKG changes. She continued to have pressure like chest pain despite negative work up. Her pain was relieved by nitro SL. Cardiology evaluated the patient and medical opitimization was recommended. Pt was started on Aspirin, Lipitor, Imdur in addition to continuation of her Metoprolol. She was noted to have labile BP and bradycardia due to which her Metoprolol dose was decreased. This morning patient reported of brief episode of lightheadedness as she got out of bed, which resolved within a few seconds. Pt is currently hemodynamically stable and denies any discomfort. Pt received her morning dose of metoprolol. Will closely monitor patient's vitals, if she remains clinically asymptomatic, will discharge patient later today. Pt in agreement to discharge care and plan. - Time Spent with Patient Total time spent providing and/or coordinating discharge services: Greater than 30 minutes - Constitutional Vitals: Temp Pulse Resp BP Pulse Ox 97.8 F 51 15 105/66 96 03/14/17 08:05 03/14/17 08:05 03/14/17 08:05 03/14/17 08:05 03/14/17 08:05 General appearance: Present: A&O X 3, no acute distress, obese, answers questions appropriately - Head Head exam: Present: atraumatic, normocephalic - Eye Eye exam: Present: conjuntiva pink, sclera anicteric - Respiratory Respiratory exam: Present: CTAB. Absent: accessory muscle use, rales, rhonchi, wheezes - Cardiovascular Cardiovascular exam: Present: RRR, +S1, +S2. Absent: diastolic murmur, gallop, rubs, systolic murmur - GI/Abdominal GI/Abdominal exam: Present: normal bowel sounds, soft, no peritoneal signs. Absent: distended, tenderness - Extremities Exam Extremities exam: Present: warm, radial pulses palpable and symmetrical. Absent : calf tenderness, cyanotic, pedal edema - Neurological Exam Neurological exam: Present: alert, oriented X3 - Psychiatric Psychiatric exam: Present: normal affect, normal mood
[2017-03-14 12:19] VITALS: BP 111/68
== END 2017-03-14 15:53 | disposition home or self-care (01) ==
LOC: 3BNU 11:57 → EMEROO 11:57 → SUATTDRO 16:41 → 3BNU 17:53
PROVIDERS: ADMIT Internal Medicine; ATTEND Internal Medicine

== ENCOUNTER 2017-05-23 14:32 | Observation (INO) ==
[2017-05-23] MEDS ORDERED: 0.9 % Sodium Chloride 500 ML IVC ONE (15:33)
[2017-05-23] MEDS ORDERED: Nitroglycerin 0.4 MG TAB.SUBL SL ONE (15:33)
--- NOTE | 2017-05-23 15:37 | Emergency Department Note ---
Disposition Clinical Impression: Chest pain Qualifiers: Chest pain type: unspecified Qualified Code(s): R07.9 - Chest pain, unspecified Hypertension Qualifiers: Hypertension type: unspecified Qualified Code(s): I10 - Essential (primary) hypertension Disposition: Admitted As Inpatient Condition: Fair Referrals: Anatoliy Parra MD [Primary Care Provider] - Forms: ED Satisfaction Letter Time of Disposition: 17:34 Chest Pain HPI - General Chief Complaint: ED Chest Pain Stated Complaint: CP Time Seen by Provider: 05/23/17 15:26 Source: patient Mode of arrival: ambulatory Limitations: no limitations Vital Signs Reviewed: Yes Nursing Notes Reviewed: Yes - History of Present Illness HPI Narrative: 71-year-old female with history of high blood pressure, diabetes, one functional kidney presents for evaluation of chest pain. Patient describes nonexertional chest pain that occurred around 1:00 this afternoon. States it is retrosternal without radiation. States it is somewhat relieved upon initial evaluation here. Patient denies any dyspnea or diaphoresis but does state she felt nauseous. No vomiting. Patient states that she did have a recent stress test a couple months ago with no subsequent heart catheter. Patient denies any abdominal pain. Patient denies a history of heart attacks. Patient took full dose ASA prior to ED arrival. Severity scale (1-10): 4 - Related Data Home Medications Medication Instructions Recorded Confirmed GlipiZIDE XL (24 HR) [Glucotrol XL] 2.5 mg PO DAILY 03/12/17 05/23/17 Pantoprazole Sodium 40 mg PO DAILY 03/12/17 05/23/17 Previous Rx's Medication Instructions Recorded Aspirin Enteric Coated [Aspirin EC] 81 mg PO DAILY #30 tablet. 03/14/17 Atorvastatin [Lipitor] 40 mg PO HS #30 tablet 03/14/17 Isosorbide MONOnitrate (24 HR) 30 mg PO DAILY #30 tab.er.24h 03/14/17 [Imdur] Metoprolol XL (24 HR) Succ [Toprol 12.5 mg PO DAILY #30 tab.er.24h 03/14/17 Xl] Allergies Allergy/AdvReac Type Severity Reaction Status Date / Time No Known Allergies Allergy Verified 03/12/17 10:05 All systems ED: reviewed and negative except as stated. Constitutional: Denies: fever Cardiovascular: Reports: chest pain Respiratory: Denies: cough, dyspnea Gastrointestinal: Reports: nausea. Denies: abdominal pain, vomiting Chest Pain PMH - Past Medical History Medical history: Reports: DVT, diabetes, hyperlipidemia, hypertension, renal disease Surgical history: Reports: hysterectomy Psychiatric history: Reports: no psych history - Social History Smoking Status: 2nd Hand Smoke Exposure Alcohol use: Reports: none Drug use: Reports: none Physical Exam - General Limitations: no limitations General appearance: alert, in no apparent distress - Head Head exam: atraumatic, normocephalic, normal inspection - Eye Eye exam: Present: normal appearance, PERRL, EOMI - ENT ENT exam: normal exam, normal oropharynx, mucous membranes moist - Neck Neck exam: Present: normal inspection, full ROM, trachea midline - Chest Chest inspection: Present: normal inspection, symmetric chest wall rise - Respiratory Respiratory exam: Present: normal lung sounds bilaterally. Absent: respiratory distress - Cardiovascular Cardiovascular exam: Present: regular rate, normal rhythm. Absent: systolic murmur - Abdominal Exam Abdominal exam: Present: soft - Extremities Exam Extremities exam: Present: normal inspection. Absent: pedal edema - Back Exam Back exam: Present: normal inspection. Absent: tenderness - Neurological Exam Neurological exam: Present: alert, oriented X3, CN II-XII intact - Skin Skin exam: Present: warm, dry, intact, normal color Course Course Narrative: Patient presents with complaints of chest pain. Patient states the pain has improved however continues to describe pressure. Patient received aspirin prehospital. Patient will require inpatient admission regarding her chest pain. - Reevaluation(s) Reevaluation #1: Patient received 1 nitroglycerin and did help with the chest pressure. Patient continues to describe crash pressure. Patient will get another nitroglycerin trial. Time: 16:26 Reevaluation #2: Patient states that her pain has resolved. Patient's resting comfortably. Awaiting hospitalist. Time: 17:18 Vital Signs Temperature 98.1 F 05/23/17 14:34 Pulse Rate 89 05/23/17 14:34 Respiratory Rate 18 05/23/17 14:34 Blood Pressure 157/94 05/23/17 14:34 O2 Sat by Pulse Oximetry 100 05/23/17 14:34 Temperature 98.1 F 05/23/17 14:34 Pulse Rate 60 05/23/17 16:26 Respiratory Rate 16 05/23/17 16:26 Blood Pressure 144/83 05/23/17 16:26 O2 Sat by Pulse Oximetry 97 05/23/17 16:26 Oxygen Delivery Oxygen Delivery Room Air Chest Pain - MDM Narrative Medical decision making narrative: Patient presents with concerns of chest pain. Patient denies history of heart attacks in the past. Patient has concerning signs symptoms. Patient's heart scores of 5. Patient would benefit from inpatient admission with further evaluation and trending troponins. Patient's acute onset of chest pain does not rule out a single negative troponin. Patient signs symptoms are less consistent with a pulmonary embolism. There is no pleuritic nature of the complaint. Patient describes retrosternal chest pressure without radiation. Patient was treated with nitroglycerin and appeared to intermittently improve her symptoms. Patient was pain free at the end of the ED course. - Lab Data Lab results reviewed: Yes I reviewed the patient's lab results. Result diagrams: 05/23/17 15:48 05/23/17 15:48 Lab Results 05/23/17 05/23/17 05/23/17 Range/Units 15:48 15:48 15:48 WBC 14.3 H (4.3-11.1) K/mcL RBC 4.22 (3.82-4.97) M/mcL Hgb 12.4 (11.5-15.4) g/dL Hct 38.7 (35.3-44.9) % MCV 91.7 (83.0-100.0) fL MCH 29.4 (28.0-33.3) pg MCHC 32.0 (31.6-35.5) g/dL RDW 14.0 (11.5-14.5) % Plt Count 338 (140-400) K/mcL MPV 10.1 (9.4-12.4) fL Immature Gran % 0.4 (0-4) % Seg Neutrophils % 77.2 % Lymphocytes % 16.4 % Monocytes % 4.8 % Eosinophils % 0.8 % Basophils % 0.4 % Neutrophils # 11.0 H (1.6-8.9) K/mcL Lymphocytes # 2.3 (0.6-4.6) K/mcL Monocytes # 0.7 (0.0-1.3) K/mcL Eosinophils # 0.1 (0.0-0.6) K/mcL Basophils # 0.1 (0.0-0.2) K/mcL PT 12.6 H (9.4-12.1) Seconds INR 1.2 Sodium (136-145) mEq/L Potassium (3.5-5.1) mEq/L Chloride (98-107) mEq/L Carbon Dioxide (23-29) mEq/L BUN (8-23) mg/dL Creatinine (0.60-1.20) mg/dL Est GFR ( Amer) (> 60) Est GFR (Non-Af Amer) (> 60) BUN/Creatinine Ratio (6-26) Glucose (70-105) mg/dL Calculated Osmolality (280-300) Calcium (8.6-10.3) mg/dL Troponin I (< 0.04) ng/mL B-Natriuretic Peptide 63 (Less than 100) pg/mL 05/23/17 Range/Units 15:48 WBC (4.3-11.1) K/mcL RBC (3.82-4.97) M/mcL Hgb (11.5-15.4) g/dL Hct (35.3-44.9) % MCV (83.0-100.0) fL MCH (28.0-33.3) pg MCHC (31.6-35.5) g/dL RDW (11.5-14.5) % Plt Count (140-400) K/mcL MPV (9.4-12.4) fL Immature Gran % (0-4) % Seg Neutrophils % % Lymphocytes % % Monocytes % % Eosinophils % % Basophils % % Neutrophils # (1.6-8.9) K/mcL Lymphocytes # (0.6-4.6) K/mcL Monocytes # (0.0-1.3) K/mcL Eosinophils # (0.0-0.6) K/mcL Basophils # (0.0-0.2) K/mcL PT (9.4-12.1) Seconds INR Sodium 138 (136-145) mEq/L Potassium 3.7 (3.5-5.1) mEq/L Chloride 109 H (98-107) mEq/L Carbon Dioxide 21 L (23-29) mEq/L BUN 12 (8-23) mg/dL Creatinine 0.93 (0.60-1.20) mg/dL Est GFR ( Amer) > 60 (> 60) Est GFR (Non-Af Amer) 60 (> 60) BUN/Creatinine Ratio 13 (6-26) Glucose 92 (70-105) mg/dL Calculated Osmolality 285 (280-300) Calcium 9.4 (8.6-10.3) mg/dL Troponin I < 0.03 (< 0.04) ng/mL B-Natriuretic Peptide (Less than 100) pg/mL - Radiology Data Radiology results reviewed: Yes I reviewed the patient's radiology results. Chest X-Ray 05/23/17 15:33 IMPRESSION: No acute cardiopulmonary disease D/ / Dwain Lau MD / Dwain Lau MD Interpreting Provider: Dwain Lau MD - EKG Data EKG attestation: Yes I reviewed and interpreted this EKG. EKG shows normal: sinus rhythm Rate: normal Rhythm: NSR [place]/QRS: normal T wave inversions noted in: aVR Interpretation: no acute changes, nonspecific ST-T wave changes Heart Score - Score History: Highly Suspicious EKG: Normal Age: Greater than 65 Risk Factors: 1-2 risk factors Troponin: Less than normal limit HEART Score Total: 5 S.B.Luis Miguel - Angel Luis Situation: Demographics Background: Presenting Complaint Assessment: Vital Signs, Course and respsone to treatment, Patient/Family Expectation Recommendation: Barrier(s) to disposition, Recommendation based on pending studies, treatments, or consults SMonse Report Given to: Dr. Susy Hein Repor Time: 17:34
[2017-05-23 16:11] LABS: Basophils # 0.1 K/mcL (0.0-0.2); Basophils % 0.4 %; Eosinophils # 0.1 K/mcL (0.0-0.6); Eosinophils % 0.8 %; Hematocrit 38.7 % (35.3-44.9); Hemoglobin 12.4 g/dL (11.5-15.4); Immature Granulocytes % 0.4 % (0-4); Lymphocytes # 2.3 K/mcL (0.6-4.6); Lymphocytes % 16.4 %; Mean Corpuscular Hemoglobin 29.4 pg (28.0-33.3); Mean Corpuscular Volume 91.7 fL (83.0-100.0); Mean Platelet Volume 10.1 fL (9.4-12.4); Monocytes # 0.7 K/mcL (0.0-1.3); Monocytes % 4.8 %; Platelet Count 338 K/mcL (140-400); Red Blood Count 4.22 M/mcL (3.82-4.97); Segmented Neutrophils % 77.2 %
[2017-05-23 16:18] LABS: INR 1.2; Prothrombin Time 12.6 Seconds (9.4-12.1)
--- NOTE | 2017-05-23 16:20 | Emergency Department Note ---
Disposition Clinical Impression: Chest pain Qualifiers: Chest pain type: unspecified Qualified Code(s): R07.9 - Chest pain, unspecified Hypertension Qualifiers: Hypertension type: unspecified Qualified Code(s): I10 - Essential (primary) hypertension Disposition: Admitted As Inpatient Condition: Fair Referrals: Anatoliy Parra MD [Primary Care Provider] - Forms: ED Satisfaction Letter General Adult HPI - General Chief complaint: ED Chest Pain Stated complaint: CP Time Seen by Provider: 05/23/17 15:26 Source: patient Mode of arrival: ambulatory Limitations: no limitations - History of Present Illness Pain Scale: 4 - Related Data Home Medications Medication Instructions Recorded Confirmed GlipiZIDE XL (24 HR) [Glucotrol XL] 2.5 mg PO DAILY 03/12/17 05/23/17 Pantoprazole Sodium 40 mg PO DAILY 03/12/17 05/23/17 Previous Rx's Medication Instructions Recorded Aspirin Enteric Coated [Aspirin EC] 81 mg PO DAILY #30 tablet.dr 03/14/17 Atorvastatin [Lipitor] 40 mg PO HS #30 tablet 03/14/17 Isosorbide MONOnitrate (24 HR) 30 mg PO DAILY #30 tab.er.24h 03/14/17 [Imdur] Metoprolol XL (24 HR) Succ [Toprol 12.5 mg PO DAILY #30 tab.er.24h 03/14/17 Xl] Allergies Allergy/AdvReac Type Severity Reaction Status Date / Time No Known Allergies Allergy Verified 03/12/17 10:05 Constitutional: Denies: fever Cardiovascular: Reports: chest pain Respiratory: Denies: cough, dyspnea Gastrointestinal: Reports: nausea. Denies: abdominal pain, vomiting Past Medical History - Past Medical History Medical history: Reports: DVT, diabetes, hyperlipidemia, hypertension, renal disease Surgical history: Reports: hysterectomy Psychiatric history: Reports: no psych history - Social History Smoking Status: 2nd Hand Smoke Exposure Smokeless Tobacco Status: No Alcohol use: Reports: none Drug use: Reports: none Physical Exam - General Limitations: no limitations General appearance: alert, in no apparent distress Course Vital Signs Temperature 98.1 F 05/23/17 14:34 Pulse Rate 89 05/23/17 14:34 Respiratory Rate 18 05/23/17 14:34 Blood Pressure 157/94 05/23/17 14:34 O2 Sat by Pulse Oximetry 100 05/23/17 14:34 Temperature 98.1 F 05/23/17 14:34 Pulse Rate 60 05/23/17 16:26 Respiratory Rate 16 05/23/17 16:26 Blood Pressure 144/83 05/23/17 16:26 O2 Sat by Pulse Oximetry 97 05/23/17 16:26 Oxygen Delivery Oxygen Delivery Room Air Medical Decision Making - Lab Data Result diagrams: 05/23/17 15:48 05/23/17 15:48 Lab Results 05/23/17 05/23/17 05/23/17 Range/Units 15:48 15:48 15:48 WBC 14.3 H (4.3-11.1) K/mcL RBC 4.22 (3.82-4.97) M/mcL Hgb 12.4 (11.5-15.4) g/dL Hct 38.7 (35.3-44.9) % MCV 91.7 (83.0-100.0) fL MCH 29.4 (28.0-33.3) pg MCHC 32.0 (31.6-35.5) g/dL RDW 14.0 (11.5-14.5) % Plt Count 338 (140-400) K/mcL MPV 10.1 (9.4-12.4) fL Immature Gran % 0.4 (0-4) % Seg Neutrophils % 77.2 % Lymphocytes % 16.4 % Monocytes % 4.8 % Eosinophils % 0.8 % Basophils % 0.4 % Neutrophils # 11.0 H (1.6-8.9) K/mcL Lymphocytes # 2.3 (0.6-4.6) K/mcL Monocytes # 0.7 (0.0-1.3) K/mcL Eosinophils # 0.1 (0.0-0.6) K/mcL Basophils # 0.1 (0.0-0.2) K/mcL PT 12.6 H (9.4-12.1) Seconds INR 1.2 Sodium (136-145) mEq/L Potassium (3.5-5.1) mEq/L Chloride (98-107) mEq/L Carbon Dioxide (23-29) mEq/L BUN (8-23) mg/dL Creatinine (0.60-1.20) mg/dL Est GFR ( Amer) (> 60) Est GFR (Non-Af Amer) (> 60) BUN/Creatinine Ratio (6-26) Glucose (70-105) mg/dL Calculated Osmolality (280-300) Calcium (8.6-10.3) mg/dL Troponin I (< 0.04) ng/mL B-Natriuretic Peptide 63 (Less than 100) pg/mL 05/23/17 Range/Units 15:48 WBC (4.3-11.1) K/mcL RBC (3.82-4.97) M/mcL Hgb (11.5-15.4) g/dL Hct (35.3-44.9) % MCV (83.0-100.0) fL MCH (28.0-33.3) pg MCHC (31.6-35.5) g/dL RDW (11.5-14.5) % Plt Count (140-400) K/mcL MPV (9.4-12.4) fL Immature Gran % (0-4) % Seg Neutrophils % % Lymphocytes % % Monocytes % % Eosinophils % % Basophils % % Neutrophils # (1.6-8.9) K/mcL Lymphocytes # (0.6-4.6) K/mcL Monocytes # (0.0-1.3) K/mcL Eosinophils # (0.0-0.6) K/mcL Basophils # (0.0-0.2) K/mcL PT (9.4-12.1) Seconds INR Sodium 138 (136-145) mEq/L Potassium 3.7 (3.5-5.1) mEq/L Chloride 109 H (98-107) mEq/L Carbon Dioxide 21 L (23-29) mEq/L BUN 12 (8-23) mg/dL Creatinine 0.93 (0.60-1.20) mg/dL Est GFR ( Amer) > 60 (> 60) Est GFR (Non-Af Amer) 60 (> 60) BUN/Creatinine Ratio 13 (6-26) Glucose 92 (70-105) mg/dL Calculated Osmolality 285 (280-300) Calcium 9.4 (8.6-10.3) mg/dL Troponin I < 0.03 (< 0.04) ng/mL B-Natriuretic Peptide (Less than 100) pg/mL Attestation Statement - Attestation Attestation: I examined this patient and my medical decision-making was reviewed with the Resident Physician. I agree with the documented findings, disposition and treatment plan as described except to the extent set forth below. Patient presents to the ED with a chief complaint of chest pressure. Onset a couple hours prior to arrival here. Substernal and nonradiating. Patient has a history of kidney disease hypertension hyperlipidemia and diabetes. Patient is in no distress on examination was still complains of some pressure. Lungs clear. Plan. Cardiac workup. EKG does not show any acute abnormalities. Troponin pending. Reviewed her stress test from the end of February. Likely admission. Heart Score - Score History: Moderately Suspicious EKG: Normal Age: Greater than 65 Risk Factors: Equal/Greater than 3 risk factor or history of atherosclerotic disease Troponin: Less than normal limit HEART Score Total: 5
[2017-05-23 16:32] LABS: BUN/Creatinine Ratio 13 (6-26); Blood Urea Nitrogen 12 mg/dL (8-23); Calcium 9.4 mg/dL (8.6-10.3); Carbon Dioxide 21 mEq/L (23-29); Chloride 109 mEq/L (98-107); Glucose 92 mg/dL (70-105); Osmolality,Calculated 285 (280-300); Potassium 3.7 mEq/L (3.5-5.1); Sodium 138 mEq/L (136-145); eGFR For African Americans > 60 (> 60); eGFR For Non-African Americans 60 (> 60)
[2017-05-23 16:33] LABS: Troponin I < 0.03 ng/mL (< 0.04)
[2017-05-23] MEDS ORDERED: Acetaminophen 325 MG TABLET PO PRN (21:06)
[2017-05-23] MEDS ORDERED: Naloxone 0.4 MG/ML INJ IVP PRN (21:06)
[2017-05-23] MEDS ORDERED: *HR* OxyCODONE Immed Rel 5 MG TABLET PO PRN (21:06)
[2017-05-23] MEDS ORDERED: D5% in Water 1,000 ML IVC PRN (21:11)
[2017-05-23] MEDS ORDERED: *HR* Dextrose 50 % in Water (Syg) 50 ML SYRINGE IVP PRN (21:11)
[2017-05-23] MEDS ORDERED: Dextrose Gel 15 GM/37.5 ML TUBE PO PRN ×2 (21:11)
[2017-05-23] MEDS: *HR* Heparin 5,000 UNIT/ML VIAL SQ SCH (21:56)
[2017-05-23 22:04] LABS: Estimated Average Glucose 131 mg/dl; Hemoglobin A1C 6.2 %
--- NOTE | 2017-05-23 22:44 | Internal Med History&Physical ---
Date of Encounter: 05/23/17 Time of Encounter: 20:30 Internal Medicine - H&P: HPI Chief complaint: chest pain; bradycardia Admitted From: Emergency Dept Plans for Post Hospital Care: Home History of present illness: Ms. Watkins is a 71 year old female who presents with a several hour history of chest pain, shortness of breath, and low heart rate. She states she counted her heart rate to the 40s at home. She felt little lightheaded and dizzy. Her chest pain and shortness of breath preceded her bradycardia. Because of her symptoms, she came to the ER where she was seen and evaluated and admitted to the hospitalist service. Of note, patient states she was hospitalized just a few months ago in March for the same symptoms. She was due to have a heart catheterization with possible PCI and intervention. However, both patient cardiology elected not to proceed with [facility] and try medication management first, given her chronic kidney disease and solitary kidney. However, she now presents 2 months later with similar symptoms and possible need for coronary intervention. I discussed this with patient at length and recommend cardiology consult and likely nephrology consult for the possibility of impending left heart transition with intervention. Her kidney function is normal on chemistry panel right now. However, she does have a solitary kidney and history of chronic kidney disease. Therefore, elective intervention needs to be carefully coordinated with nephrology as well. Patient voiced understanding and agreement with my recommendations. Presently, she has no chest pain, but she does have some mild shortness of breath. Past Med Surg Social Fam HX - Past Medical History Attestation: Yes The following information was validated with the patient. Source: patient, old records reviewed Medical history: DVT, diabetes, hyperlipidemia, hypertension, renal disease Psychiatric history: no psych history - Past Surgical History Surgical History: hysterectomy - Social History Smoking Status: 2nd Hand Smoke Exposure Smokeless Tobacco Status: No Alcohol use: none Drug use: none Current living situation: Home, With Family Activity Level: Independent ambulation Recent Out of Country Travel Within the Last 8 Weeks: No - Family History Mother Hx Family Cancer: Yes (colon and breast) Internal Medicine - H&P: Meds GlipiZIDE XL (24 HR) [Glucotrol XL] 2.5 mg PO DAILY 03/12/17 [History] Pantoprazole Sodium 40 mg PO DAILY 03/12/17 [History] Aspirin Enteric Coated [Aspirin EC] 81 mg PO DAILY #30 tablet. 03/14/17 [Rx] Atorvastatin [Lipitor] 40 mg PO HS #30 tablet 03/14/17 [Rx] Isosorbide MONOnitrate (24 HR) [Imdur] 30 mg PO DAILY #30 tab.er.24h 03/14/17 [ Rx] Metoprolol XL (24 HR) Succ [Toprol Xl] 12.5 mg PO DAILY #30 tab.er.24h 03/14/17 [Rx] 3 Allergy/AdvReac Type Severity Reaction Status Date / Time No Known Allergies Allergy Verified 03/12/17 10:05 - Constitutional Constitutional: no chills, no fever(s), no night sweats - EENT Eyes: no blurry vision, no change in vision Ears: no ear pain, no tinnitus Nose, mouth and throat: no nasal congestion, no nasal discharge, no sinus pressure, no sore throat - Cardiovascular Cardiovascular ROS IM: chest pain, diaphoresis, dyspnea, lightheadedness, other (bradycardia with HR in the 40's), no dyspnea on exertion, no syncope - Respiratory Respiratory: no cough, no hemoptysis, no dyspnea on exertion, no wheezing, no chest congestion, no excessive phlegm production, no change in phlegm color - Gastrointestinal Gastrointestinal: no abdominal pain, no diarrhea, no hematemesis, no hematochezia, no melena, no nausea, no vomiting - Genitourinary Genitourinary: no dysuria, no flank pain, no hematuria - Musculoskeletal Musculoskeletal ROS IM: no arthralgias, no back pain, no joint swelling - Integumentary Integumentary IM: no rash, no jaundice - Neurological Neurological ROS: no dizziness, no focal weakness, no frequent falls, no headache(s) - Psychiatric Psychiatric: no anxiety, no depression - Endocrine Endocrine IM: no polydipsia, no polyuria - Hematologic/Lymphatic Hematologic/Lymphatic: no easy bruising, no lymphadenopathy - Allergic/Immunologic Allergic/Immunologic: no wheezing, no GI upset with certain foods - Constitutional Vitals: Temp Pulse Resp BP Pulse Ox 97.6 F 57 16 156/91 97 05/23/17 21:03 05/23/17 21:03 05/23/17 21:03 05/23/17 21:03 05/23/17 21:03 General appearance: Present: cooperative, A&O X 3, pleasant, no acute distress, answers questions appropriately - Head Head exam: Present: atraumatic, normal inspection - Eye Eye exam: Present: EOMI, normal appearance, PERRL. Absent: scleral icterus Pupils: Present: normal accommodation - ENT ENT exam: Present: mucous membranes dry, normal exam, normal oropharynx - Neck Neck exam general surgery: Present: full ROM, supple. Absent: tenderness, nuchal rigidity, thyromegaly - Respiratory Respiratory exam: Present: CTAB. Absent: chest wall tenderness, rales, respiratory distress, rhonchi, wheezes - Cardiovascular Cardiovascular exam: Present: RRR (HR 50-60's presently), +S1, +S2. Absent: diastolic murmur, systolic murmur - GI/Abdominal GI/Abdominal exam: Present: normal bowel sounds, soft. Absent: guarding, hepatomegaly, mass, rebound, splenomegaly, tenderness - Extremities Exam Extremities exam: Present: full ROM, normal capillary refill, warm, radial pulses palpable and symmetrical. Absent: calf tenderness, joint swelling, pedal edema, tenderness - Back Exam Back exam: Present: normal inspection. Absent: CVA tenderness (L), CVA tenderness (R) - Neurological Exam Neurological exam: Present: alert, CN II-XII intact, oriented X3, no focal deficits, strengths equal and symetr throughout - Psychiatric Psychiatric exam: Present: normal affect, normal mood - Skin Skin exam: Present: dry, warm. Absent: rash Internal Med - H&P Results - Labs CBC & Chem 7: 05/23/17 15:48 05/23/17 15:48 Labs: Cardiac Enzymes 05/23/17 Range/Units 21:49 Troponin I < 0.03 (< 0.04) ng/mL - EKG Data -: EKG Interpreted by Myself - EKG Data Prior EKG available for review: no EKG comments: 05/23/17 22:49 NSR; no acute ST-T changes; PAC's - Diagnostic Studies Chest x-ray Status: image reviewed by me (negative) - Assessment and plan (1) Chest pain Current Visit: Yes Status: Acute Assessment and plan: 1. Will admit and monitor EKG's and trend troponin levels. 2. Consult cardiology for consideration of LHC/PCI. 3. Continue home meds as appropriate; hold Metoprolol. Qualifiers: Chest pain type: chest pain due to myocardial ischemia Qualified Code(s): I20.8 - Other forms of angina pectoris (2) Symptomatic bradycardia Current Visit: Yes Status: Acute Assessment and plan: 1. Hold Metoprolol. 2. Patient reports symptomatic bradycardia with HR in the 40's at home prior to arrival. 3. Monitor on telemetry. (3) Diabetes mellitus Current Visit: No Status: Chronic Assessment and plan: 1. Hold oral meds. 2. Will use SSI and monitor/adjust dosing as needed. Qualifiers: Diabetes mellitus type: type 2 Diabetes mellitus meterman insulin use: without meterman use Diabetes mellitus complication status: with unspecified complications Qualified Code(s): E11.8 - Type 2 diabetes mellitus with unspecified complications (4) DVT prophylaxis Current Visit: No Status: Acute Assessment and plan: 1. Heparin SQ.
[2017-05-24 04:54] LABS: Basophils # 0.1 K/mcL (0.0-0.2); Basophils % 0.7 %; Eosinophils # 0.2 K/mcL (0.0-0.6); Hematocrit 36.8 % (35.3-44.9); Hemoglobin 11.7 g/dL (11.5-15.4); Immature Granulocytes % 0.3 % (0-4); Lymphocytes # 1.8 K/mcL (0.6-4.6); Lymphocytes % 18.3 %; Mean Corpuscular HGB Conc 31.8 g/dL (31.6-35.5); Mean Corpuscular Volume 91.3 fL (83.0-100.0); Mean Platelet Volume 10.4 fL (9.4-12.4); Monocytes # 0.5 K/mcL (0.0-1.3); Monocytes % 5.6 %; Platelet Count 302 K/mcL (140-400); Red Blood Count 4.03 M/mcL (3.82-4.97); Red Cell Distribution Width 14.1 % (11.5-14.5); Segmented Neutrophils % 73.1 %
[2017-05-24 05:00] LABS: INR 1.1; Prothrombin Time 12.2 Seconds (9.4-12.1)
[2017-05-24 05:02] LABS: Activated Partial Thrombo Time 28.2 Seconds (26.0-36.0)
[2017-05-24 05:21] LABS: Troponin I < 0.03 ng/mL (< 0.04)
[2017-05-24 05:22] LABS: Alanine Aminotransferase 11 Units/L (7-52); Albumin 3.6 g/dL (3.5-5.7); Albumin/Globulin Ratio 1.2 (1.1-2.2); Alkaline Phosphatase 75 Units/L (34-104); Aspartate Amino Transferase 13 Units/L (13-39); BUN/Creatinine Ratio 14 (6-26); Bilirubin,Total 0.6 mg/dL (0.3-1.0); Blood Urea Nitrogen 13 mg/dL (8-23); Carbon Dioxide 22 mEq/L (23-29); Chloride 111 mEq/L (98-107); Chol/HDL Ratio 3.1 (0-4.9); Cholesterol 105 mg/dL (< 200); Glucose 98 mg/dL (70-105); HDL Cholesterol 34 mg/dL (40-59); LDL Cholesterol,Calculated 51 mg/dL (0-99); Magnesium 1.9 mg/dL (1.6-2.6); Osmolality,Calculated 292 (280-300); Potassium 3.6 mEq/L (3.5-5.1); Sodium 141 mEq/L (136-145); Total Protein 6.6 g/dL (6.4-8.9); Triglycerides 100 mg/dL (< 150); eGFR For African Americans > 60 (> 60); eGFR For Non-African Americans > 60 (> 60)
[2017-05-24] MEDS: *HR* Heparin 5,000 UNIT/ML VIAL SQ SCH ×2 (06:11→18:01)
[2017-05-24] MEDS: Insulin LISPRO 300 UNITS/3 ML VIAL SQ SCH ×3 (08:45→16:24)
[2017-05-24] MEDS: Isosorbide MONOnitrate (24 HR) 30 MG TAB.ER.24H PO SCH (08:50)
[2017-05-24] MEDS: Aspirin Enteric Coated 81 MG Tablet PO SCH (08:50)
--- NOTE | 2017-05-24 10:29 | Cardiology Consult Note ---
Date of Encounter: 05/24/17 Time of Encounter: 10:00 Assessment and Plan (1) Bradycardia Current Visit: Yes Status: Acute Bradycardia multifactorial, suspect due to ischemia with provocation of bradycardia following chest pain, exacerbated by metoprolol, will dc metoprolol , monitor heart rate response, (2) Chest pain Current Visit: No Status: Acute symptoms consistent with Class III angina, discussed LHC/poss, pt now agrees to proceed, recommend consult nephrology, proceed with LHC when medically optimized. Will hold all beta blockade for now due to bradycardia. Qualifiers: Chest pain type: precordial pain Qualified Code(s): R07.2 - Precordial pain (3) Solitary kidney Current Visit: Yes Status: Acute congenital solitary kidney, stable renal function at present, consult nephro before C (4) Hypertension Current Visit: Yes Status: Acute Not well controlled, holding beta blockers due to bradycardia, not an ideal candidate for JOHN/ARB/diuretics, add amlodipine 5 mg q d. 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 Discussion w patient/family: The assessment and plan as outlined above was discussed with the patient and/or family members who expressed understanding and agreement. All questions were answered. Thank you for involving us in the care of your patient. Please call with any questions. History of Present Illness Consult date: 05/24/17 Requesting physician: Mary Kate Song Consult reason: bradycardia, chest pain Chief complaint: dizziness History of present illness: Ms. Watkins is a 71 year old female who presented to the ER with complaints of dizziness and lightheadedness over the last several days leading up to admission. She reports sudden onset of mid epigastric chest pain, 6/10, associated with dizziness, lasting five to fifteen minutes, radiating into left breast, resolving slowly spontaneously, but waxing and waning over four hours, relieved completely in ER with sl ntg x 2 . She checked her pulse during this event, found heart rate to be around 40 beats per minute, with symptoms resolving as her heart rate improved to the mid fifties. She has hx of similar episode for which she was hospitalized in 03/2017, ruled out for myocardial necrosis, discharged to home on medical tx. At that time after lengthy conversation with patient about risks and benefits of LHC/possible intervention in light of chronic kidney disease and congenital solitary kidney, elected to treat with non-invasive strategy. She has been active with house work and self care, however not exercising regularly, Reports is compliant with all medications. Past Med Surg Social Fam HX - Past Medical History Medical history: DVT, diabetes, hyperlipidemia, hypertension, renal disease Psychiatric history: no psych history - Past Surgical History Surgical History: hysterectomy - Social History Smoking Status: 2nd Hand Smoke Exposure Smokeless Tobacco Status: No Alcohol use: none Drug use: none - Family History Mother Hx Family Cancer: Yes (colon and breast) Medications and Allergies GlipiZIDE XL (24 HR) [Glucotrol XL] 2.5 mg PO DAILY 03/12/17 [History] Pantoprazole Sodium 40 mg PO DAILY 03/12/17 [History] Aspirin Enteric Coated [Aspirin EC] 81 mg PO DAILY #30 tablet.dr 03/14/17 [Rx] Atorvastatin [Lipitor] 40 mg PO HS #30 tablet 03/14/17 [Rx] Isosorbide MONOnitrate (24 HR) [Imdur] 30 mg PO DAILY #30 tab.er.24h 03/14/17 [ Rx] Metoprolol XL (24 HR) Succ [Toprol Xl] 12.5 mg PO DAILY #30 tab.er.24h 03/14/17 [Rx] 3 Allergy/AdvReac Type Severity Reaction Status Date / Time No Known Allergies Allergy Verified 03/12/17 10:05 All Systems Review: The remainder of the systems were reviewed and are negative - Constitutional Constitutional: fatigue - Cardiovascular Cardiovascular: dyspnea on exertion, lightheadedness Physical Examination Vital Signs, Last 4 Hours Temp Pulse Resp BP Pulse Ox 05/24/17 09:07 92 05/24/17 06:49 98.4 F 61 16 134/77 General: Conversant, No Apparent Distress HEENT: Atraumatic, Normocephaly, Mucus Membranes Moist Neck: No JVD Cardiac: Reg Rate and Rhythm, Normal S1 and S2, No Murmur Lungs: Normal Breath Sounds, No Wheeze, Rales, Rhonchi Neuro: Alert and responsive, No focal deficits noted Abdomen: Soft, Non-Tender Skin: No rashes noted on visualized skin Extremities: No Clubbing, No Cyanosis, No Edema, Normal Pulses Results 05/24/17 04:16 05/24/17 04:16 Lab Results 05/23/17 05/24/17 05/24/17 21:49 04:16 04:16 WBC 9.5 Hgb 11.7 Hct 36.8 Plt Count 302 INR 1.1 APTT 28.2 Sodium Potassium Chloride Carbon Dioxide BUN Creatinine Glucose Calcium Magnesium Total Bilirubin AST ALT Alkaline Phosphatase Troponin I < 0.03 05/24/17 04:16 WBC Hgb Hct Plt Count INR APTT Sodium 141 Potassium 3.6 Chloride 111 H Carbon Dioxide 22 L BUN 13 Creatinine 0.90 Glucose 98 Calcium 9.0 Magnesium 1.9 Total Bilirubin 0.6 AST 13 ALT 11 Alkaline Phosphatase 75 Troponin I < 0.03 Consult Discharge Plan - Plan Referrals: Anatoliy Parra MD [Primary Care Provider] -
--- NOTE | 2017-05-24 18:16 | Internal Med Progress Note ---
Date of Encounter: 05/24/17 Time of Encounter: 12:10 - Assessment and plan (1) Diabetes mellitus Current Visit: No Status: Chronic Assessment and plan: Sliding scale insulin, Accu-Cheks before meals at bedtime, diabetic diet. A1c 6.2%. 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 (3) Chest pain Current Visit: Yes Status: Acute Assessment and plan: Patient reported to the emergency department with several hour history of chest pain, shortness of breath, bradycardia. Patient reports heart rate in the 40s at home. She was symptomatic with associated lightheadedness and dizziness. Chest pain or shortness of breath preceded bradycardia. Prior admission for same. She was due to have an LHC with possible PCI intervention, however, both patient and cardiology elected to not proceed to try medical management first given her chronic kidney disease history of solitary kidney. Cardiology has evaluated the patient, we will proceed with LHC on Friday. Continue telemetry Cardiology has added amlodipine 5 mg daily. Beta susan has been discontinued due to bradycardia Plan for [facility] Friday. Continue to monitor labs and treat chest pain. Qualifiers: Chest pain type: chest pain due to myocardial ischemia Qualified Code(s): I20.8 - Other forms of angina pectoris (4) Symptomatic bradycardia Current Visit: Yes Status: Acute Assessment and plan: Beta susan has been held. Rate in the 60s and 70s. Amlodipine has been added for blood pressure. Plan for C Friday Continue telemetry (5) Solitary kidney Current Visit: Yes Status: Chronic Assessment and plan: Chronic. Congenital. Renal function within normal limits. Creatinine 0.90, GFR greater than 60. Requesting nephrology consultation prior to LHC. Monitor labs Avoid nephrotoxins. - Time Spent With Patient Total time spent is greater than 50% in coordination of care (as documented) at patient's floor/unit and/or counseling patient: less than 15 minutes - Subjective Interval history: She was seen and assessed at 12:10 AM. Patient denies chest pain. She is agreeable to staying for [facility] on Friday. He should not had questions about nephrology visiting patient. She denies shortness of breath, nausea or vomiting , diaphoresis. She denies abdominal pain. - Constitutional Vitals: Temp Pulse Resp BP Pulse Ox 98.4 F 76 16 135/77 95 05/24/17 14:50 05/24/17 14:50 05/24/17 14:50 05/24/17 14:50 05/24/17 14:50 General appearance: Present: cooperative, A&O X 3, pleasant, no acute distress, answers questions appropriately - Head Head exam: Present: atraumatic, normal inspection, normocephalic - Eye Eye exam: Present: normal appearance, conjuntiva pink, sclera anicteric - Neck Neck exam general surgery: Present: supple, trachea midline. Absent: lymphadenopathy - Respiratory Respiratory exam: Present: decreased breath sounds, CTAB. Absent: accessory muscle use, chest wall tenderness, rales, respiratory distress, rhonchi, wheezes - Cardiovascular Cardiovascular exam: Present: RRR, +S1, +S2. Absent: diastolic murmur, gallop, rubs, systolic murmur - GI/Abdominal GI/Abdominal exam: Present: normal bowel sounds, soft. Absent: distended, hepatomegaly, tenderness - Extremities Exam Extremities exam: Present: normal capillary refill, normal inspection, warm, radial pulses palpable and symmetrical. Absent: calf tenderness, cyanotic, pedal edema, tenderness - Neurological Exam Neurological exam: Present: alert, oriented X3, no focal deficits. Absent: altered, facial droop, speech deficit - Skin Skin exam: Present: dry, intact, normal color, warm. Absent: rash Internal Medicine: Result - Labs CBC & Chem 7: 05/24/17 04:16 05/24/17 04:16 Labs: Short CBC 05/24/17 Range/Units 04:16 WBC 9.5 (4.3-11.1) K/mcL Hgb 11.7 (11.5-15.4) g/dL Hct 36.8 (35.3-44.9) % Plt Count 302 (140-400) K/mcL Neutrophils # 7.0 (1.6-8.9) K/mcL BMP 05/24/17 04:16 Sodium 141 Potassium 3.6 Chloride 111 H Carbon Dioxide 22 L BUN 13 Creatinine 0.90 Glucose 98 Calcium 9.0 Cardiac Enzymes 05/23/17 05/24/17 Range/Units 21:49 04:16 Troponin I < 0.03 < 0.03 (< 0.04) ng/mL Liver Function 05/24/17 Range/Units 04:16 Total Bilirubin 0.6 (0.3-1.0) mg/dL AST 13 (13-39) Units/L ALT 11 (7-52) Units/L Alkaline Phosphatase 75 (34-104) Units/L Albumin 3.6 (3.5-5.7) g/dL - ABG Interpretation ABG results: PT/INR, D-dimer PT 12.2 Seconds (9.4-12.1) H 05/24/17 04:16 Consult Discharge Plan - Plan Referrals: Anatoliy Parra MD [Primary Care Provider] -
[2017-05-25 01:40] LABS: Basophils # 0.1 K/mcL (0.0-0.2); Basophils % 0.7 %; Eosinophils # 0.3 K/mcL (0.0-0.6); Eosinophils % 2.4 %; Hematocrit 39.2 % (35.3-44.9); Immature Granulocytes % 0.3 % (0-4); Lymphocytes # 2.1 K/mcL (0.6-4.6); Lymphocytes % 19.2 %; Mean Corpuscular HGB Conc 33.2 g/dL (31.6-35.5); Mean Corpuscular Hemoglobin 30.4 pg (28.0-33.3); Mean Corpuscular Volume 91.8 fL (83.0-100.0); Monocytes # 0.6 K/mcL (0.0-1.3); Monocytes % 5.4 %; Neutrophils # 7.8 K/mcL (1.6-8.9); Platelet Count 318 K/mcL (140-400); Red Blood Count 4.27 M/mcL (3.82-4.97); Red Cell Distribution Width 14.1 % (11.5-14.5)
[2017-05-25 02:04] LABS: BUN/Creatinine Ratio 15 (6-26); Blood Urea Nitrogen 16 mg/dL (8-23); Calcium 9.4 mg/dL (8.6-10.3); Carbon Dioxide 25 mEq/L (23-29); Chloride 108 mEq/L (98-107); Glucose 123 mg/dL (70-105); Osmolality,Calculated 295 (280-300); Potassium 3.8 mEq/L (3.5-5.1); Sodium 141 mEq/L (136-145); eGFR For African Americans > 60 (> 60); eGFR For Non-African Americans 52 (> 60)
[2017-05-25] MEDS: *HR* Heparin 5,000 UNIT/ML VIAL SQ SCH ×2 (06:00→18:04)
[2017-05-25] MEDS: Insulin LISPRO 300 UNITS/3 ML VIAL SQ SCH ×3 (08:31→16:40)
[2017-05-25] MEDS: Isosorbide MONOnitrate (24 HR) 30 MG TAB.ER.24H PO SCH (08:36)
[2017-05-25] MEDS: Aspirin Enteric Coated 81 MG Tablet PO SCH (08:36)
--- NOTE | 2017-05-25 14:51 | Nephrology Consult Note ---
Date of Encounter: 05/25/17 Time of Encounter: 14:30 Assessment and Plan (1) CKD (chronic kidney disease) stage 2, GFR 60-89 ml/min Current Visit: Yes Status: Acute Discussed at length risks and benefits of exposure to contrast with [facility]. Pt understands and wishes to proceed. Will optimize her renal fxn by starting IVF with NS at 60cc/hr Will also start mucomyst today Should SCr improve by morning, can proceed with LHC but would delay if worsening Will check urine for proteinuria Minimal contrast dose advised if possible Will follow with you, thanks. (2) Bradycardia Current Visit: Yes Status: Acute (3) Chest pain Current Visit: Yes Status: Acute Qualifiers: Chest pain type: chest pain due to myocardial ischemia Qualified Code(s): I25.9 - Chronic ischemic heart disease, unspecified (4) Solitary kidney Current Visit: Yes Status: Chronic History of Present Illness - Reason for Consult Consult date: 05/25/17 Acute Kidney Injury, Chronic Kidney Disease Requesting physician: Mary Kate Song - History of Present Illness 71 y o AAfemale with PMH of DM, HTN and stage 2 CKD with solitary kidney and prior history of nephrolithiasis admitted with SOB, chest pain along with lightheadedness and found with braadycardia. She reports prior history of similar event in mar at which time she elected for medical management. Cardiology consulted suggesting LHC which patient is now open to but worried about her renal function. Renal consuted for managment of CKD with pending LHC. Pt seen and examined without complaints. SCt today noted at 1.05, gfr >60 previously 0.9, GFR >60 both within her baseline of fluctuation Past Med Surg Social Fam HX - Past Medical History Medical history: DVT, diabetes, hyperlipidemia, hypertension, renal disease Psychiatric history: no psych history - Past Surgical History Surgical History: hysterectomy - Social History Smoking Status: 2nd Hand Smoke Exposure Smokeless Tobacco Status: No Alcohol use: none Drug use: none - Family History Mother Hx Family Cancer: Yes (colon and breast) Medications and Allergies GlipiZIDE XL (24 HR) [Glucotrol XL] 2.5 mg PO DAILY 03/12/17 [History] Pantoprazole Sodium 40 mg PO DAILY 03/12/17 [History] Aspirin Enteric Coated [Aspirin EC] 81 mg PO DAILY #30 tablet. 03/14/17 [Rx] Atorvastatin [Lipitor] 40 mg PO HS #30 tablet 03/14/17 [Rx] Isosorbide MONOnitrate (24 HR) [Imdur] 30 mg PO DAILY #30 tab.er.24h 03/14/17 [ Rx] Metoprolol XL (24 HR) Succ [Toprol Xl] 12.5 mg PO DAILY #30 tab.er.24h 03/14/17 [Rx] 3 Allergy/AdvReac Type Severity Reaction Status Date / Time No Known Allergies Allergy Verified 03/12/17 10:05 Review of Systems All Systems: reviewed and no additional remarkable complaints except as stated ( 10 systems reviewed) Exam - Vital Signs Vital signs: Initial Vital Signs Temp Pulse Resp BP Pulse Ox 98.1 F 89 18 157/94 100 05/23/17 14:34 05/23/17 14:34 05/23/17 14:34 05/23/17 14:34 05/23/17 14:34 Vital Signs - Last 8 Hours Temp Pulse Resp BP Pulse Ox 05/25/17 11:15 98.2 F 90 18 131/79 93 Intake and Output 05/24/17 05/25/17 05/25/17 23:59 07:59 15:59 Intake Total 200 / 200 680 / 680 Balance 200 / 200 680 / 680 Intake: Oral 200 / 200 680 / 680 Other: Meal Dinner Lunch Percent of Meal Consumed 95% 100% # Voids 1 Weight 84.4 kg Blood Glucose* 101 107 111 Patient Weight 05/25/17 23:59 Weight 84.4 kg - General Appearance General appearance: well-developed, well-nourished EENT: ATNC, mucous membranes moist Neck: no JVD, supple Respiratory: clear Cardiology: no edema, normal S1, normal S2 Gastrointestinal: no tenderness, no guarding Integumentary: no rash Neurologic: no focal deficit Musculoskeletal: no deformities Psychiatric: mood/affect appropriate, cooperative Results - Lab Results 05/25/17 01:31 05/25/17 01:31 Most recent lab results Calcium 9.4 mg/dL (8.6-10.3) 05/25/17 01:31 Magnesium 1.9 mg/dL (1.6-2.6) 05/24/17 04:16 Consult Discharge Plan - Plan Referrals: Anatoliy Parra MD [Primary Care Provider] -
[2017-05-25] MEDS: *HR* Acetylcysteine 20% 600 MG/3 ML ORAL SYRINGE PO SCH ×2 (15:27→21:15)
[2017-05-25] MEDS: 0.9 % Sodium Chloride 1,000 ML IVC SCH (15:28)
[2017-05-25 16:41] LABS: Protein/Creatinine Ratio,Urine 0.12 mg/mg (0.00-0.20)
[2017-05-25 16:44] LABS: Creatinine,Urine 57 mg/dL; Microalbum/Creatinine Ratio,Ur 40 mcg/mg (Less than 30); Microalbumin,Urine 23 mg/L
--- NOTE | 2017-05-25 22:54 | Cardiology Progress Note ---
Date of Encounter: 05/25/17 Time of Encounter: 21:00 Assessment and Plan (1) Bradycardia Current Visit: Yes Status: Acute Bradycardia multifactorial, has resolved off metoprolol, normalized heart rate response to exercise, (2) Chest pain Current Visit: No Status: Acute Chest pain has resolved, reviewed indications, risks, benefits of invasive strategy, appreciate nephrology eval, await AM labs for possible LHC tomorrow. . Qualifiers: Chest pain type: chest pain due to myocardial ischemia Qualified Code(s): I20.0 - Unstable angina (3) Solitary kidney Current Visit: Yes Status: Chronic congenital solitary kidney, stable renal function at present, appreciate nephrology evaluation, recommendations. (4) Hypertension Current Visit: Yes Status: Acute Not well controlled, holding beta blockers due to bradycardia, not an ideal candidate for JOHN/ARB/diuretics, add amlodipine 5 mg q d. if ok with nephrology Qualifiers: Hypertension type: essential hypertension Qualified Code(s): I10 - Essential (primary) hypertension (5) Diabetes 1.5, managed as type 2 Current Visit: No Status: Chronic Appears adequately controlled, primary service managing. Discussion w patient/family: The assessment and plan as outlined above was discussed with the patient and/or family members who expressed understanding and agreement. All questions were answered. Thank you for involving us in the care of your patient. Please call with any questions. Subjective Principal diagnosis: Chest pain, bradycardia Interval history: PT reports chest pain has resolved. She has been up in her room without symptoms, notes dizziness and lightheadedness have also resolved. Objective Vital Signs, Last 4 Hours Temp Pulse Resp BP Pulse Ox 05/25/17 19:39 98.2 F 63 16 117/68 94 General: Conversant, No Apparent Distress HEENT: Atraumatic, Normocephaly, Mucus Membranes Moist, Other Neck: No JVD, Normal carotid pulses Cardiac: Reg Rate and Rhythm, Normal S1 and S2, No Murmur Lungs: Normal Breath Sounds, No Wheeze, Rales, Rhonchi Neuro: Alert and responsive, No focal deficits noted Abdomen: Soft, Non-Tender Skin: No rashes noted on visualized skin Musculoskeletal: No Chest Wall Tenderness Extremities: No Clubbing, No Cyanosis, No Edema, Normal Pulses Results 05/25/17 01:31 05/25/17 01:31 Lab Results 05/25/17 05/25/17 01:31 01:31 WBC 10.9 Hgb 13.0 Hct 39.2 Plt Count 318 Sodium 141 Potassium 3.8 Chloride 108 H Carbon Dioxide 25 BUN 16 Creatinine 1.05 Glucose 123 H Calcium 9.4 Consult Discharge Plan - Plan Referrals: Anatoliy Parra MD [Primary Care Provider] - 05/26/17 9:45 am
[2017-05-26 04:54] LABS: Basophils # 0.1 K/mcL (0.0-0.2); Basophils % 0.5 %; Eosinophils # 0.2 K/mcL (0.0-0.6); Eosinophils % 2.3 %; Hematocrit 38.9 % (35.3-44.9); Hemoglobin 12.6 g/dL (11.5-15.4); Immature Granulocytes % 0.5 % (0-4); Lymphocytes % 20.5 %; Mean Corpuscular HGB Conc 32.4 g/dL (31.6-35.5); Mean Corpuscular Hemoglobin 29.4 pg (28.0-33.3); Mean Corpuscular Volume 90.7 fL (83.0-100.0); Mean Platelet Volume 10.3 fL (9.4-12.4); Monocytes # 0.6 K/mcL (0.0-1.3); Monocytes % 6.1 %; Neutrophils # 6.8 K/mcL (1.6-8.9); Nucleated Red Blood Cells 0.3 /100 WBC (0); Platelet Count 329 K/mcL (140-400); Red Blood Count 4.29 M/mcL (3.82-4.97); Red Cell Distribution Width 14.1 % (11.5-14.5); Segmented Neutrophils % 70.1 %
[2017-05-26 05:11] LABS: BUN/Creatinine Ratio 18 (6-26); Blood Urea Nitrogen 18 mg/dL (8-23); Calcium 9.2 mg/dL (8.6-10.3); Carbon Dioxide 22 mEq/L (23-29); Chloride 110 mEq/L (98-107); Glucose 102 mg/dL (70-105); Osmolality,Calculated 290 (280-300); Potassium 3.7 mEq/L (3.5-5.1); Sodium 139 mEq/L (136-145); eGFR For African Americans > 60 (> 60); eGFR For Non-African Americans 56 (> 60)
[2017-05-26] MEDS: *HR* Heparin 5,000 UNIT/ML VIAL SQ SCH ×2 (06:01→18:24)
[2017-05-26] MEDS: Insulin LISPRO 300 UNITS/3 ML VIAL SQ SCH ×3 (08:34→16:11)
[2017-05-26] MEDS: Aspirin Enteric Coated 81 MG Tablet PO SCH (08:49)
[2017-05-26] MEDS: *HR* Acetylcysteine 20% 600 MG/3 ML ORAL SYRINGE PO SCH ×2 (08:49→21:04)
[2017-05-26] MEDS: Isosorbide MONOnitrate (24 HR) 30 MG TAB.ER.24H PO SCH (08:49)
[2017-05-26] MEDS: 0.9 % Sodium Chloride 1,000 ML IVC SCH (08:50)
--- NOTE | 2017-05-26 11:14 | Event Note ---
Date of Encounter: 05/26/17 Time of Encounter: 10:30 - Cardiology Event Note PLan for LHC today for stress test 03/2017 with normal perfusion imaging, however had T wave inversions during stress. Patient elected at that time for medical management. due to CKD. Now with recurrence of chest pain. Nephrology on board and recommended IVF and mucomyst prior to LHC. Creatinine yesterday 1.05, today 0.99. Risks versus benefits of LHC explained to patient, patient educated on increased risk of contrast induced nephropathy with CKD and solitary kidney. Patient states understanding and agreeable to proceed.
--- NOTE | 2017-05-26 11:25 | Pre-Sedation Evaluation ---
Pre-sedation evaluation - Pre-sedation checklist Date of procedure: 05/26/17 Procedure: LHC Recent Vitals: Last Vital Signs Temp 97.9 F 05/26/17 06:49 Pulse 56 05/26/17 06:49 Resp 16 05/26/17 06:49 BP 144/79 05/26/17 06:49 Pulse Ox 96 05/26/17 06:49 ASA Classification *see protocol: CLASS II-Mild systemic disease
[2017-05-26] MEDS ORDERED: *HR* Heparin 10,000 UNIT/10 ML VIAL ONE (12:18)
[2017-05-26] MEDS ORDERED: ISOVUE-370 200 ML INFUS..BTL IV ONE (12:18)
[2017-05-26] MEDS ORDERED: Heparin 1,000 UNITS/500 mL 500 ML ONE (12:18)
[2017-05-26] MEDS ORDERED: 0.9 % Sodium Chloride 1,000 ML ONE ×2 (12:18→12:47)
[2017-05-26] MEDS ORDERED: *HR* Midazolam HCl 2 MG/2 ML VIAL ONE (12:46)
[2017-05-26] MEDS ORDERED: *HR* FentaNYL (PF) 100 MCG/2 ML VIAL ONE (12:47)
--- NOTE | 2017-05-26 13:16 | Event Note ---
Date of Encounter: 05/26/17 Time of Encounter: 13:14 - Cardiology Event Note Per discussion with , [facility] with no intervention needed. 15ml of contrast used. Cardiology will sign off and will follow in outpatient setting. Follow up set.
--- NOTE | 2017-05-26 13:23 | Invasive Diagnostic Lab Proc ---
Name: Olimpia Watkins Date of Study: 05/26/2017 Date: 1945 Ht: 61.8in Medical Record#: [id number] Age: 71 Wt: 185.19lb Gender: Female BSA: 1.85 Order #: [id number] BMI: 34.08 Physicians Procedure Physician: Jessy Hernandez MD Referring MD: Referring MD: Staff Name Position Time In Sites, Debby RT (R) Monitor 12:44 PM Benjamín Freeman RT (R) Scrub 12:44 PM An Morgan RN Tax Specialist 12:44 PM Indications Indication Abnormal Test - Stress Procedures Performed Procedure L HRT ARTERY/VENTRICLE ANGIO Pre-Procedure Checklist Informed consent is complete signed and on chart. H&P is on chart. ID band is on and ID verified with patient. Patient NPO for procedure The procedure was described for the patient and questions were answered. Blood Pressure: 158/78 ECG is on chart. Rhythm: NSR Plan of Care Patient will tolerate the procedure without complications. Adequate level of comfort will be maintained. Hemodynamics will remain stable Patient will recover from procedure without complications. Respiratory function will be maintained. Cardiac rhythm will remain stable. Patient temperature will be maintained. Patient and/or family have verbalized understanding of the procedure. Patient Education Chief Complaint/Reason for Test: Cardiac Cath Developmental Category: Geriatric (65+ years) Developmentally Appropriate for Age: Yes Learning Barriers: None Education Needs: Procedure Education Method: Verbal Information Taught: Cardiac Cath Educational Evaluation: Able to repeat information Intravenous Access Time IV Size Location DC'd Fluid/Drip Rate Units RN 20g 1 1/" Patent On Arrival Rt Antecubital 0.9NaCl 25 ml/hr An Morgan RN Allergies NKA Vital Signs Time BP (mmHg) HR (bpm) O2 Sat. RR (bpm) LOC 12:57 PM / % 5 = Fully awake and oriented or at pre-proc level 12:47 PM 163 / 77 60 97 % 12:52 PM 158 / 78 66 97 % 12:57 PM 153 / 83 57 100 % 01:02 PM 134 / 88 57 99 % 01:07 PM 140 / 79 69 99 % Procedural Medications Time Medication Dose Units Method Given By 12:56 PM Oxygen 2 L/min nasal cannula An Morgan RN 12:57 PM Versed 1 mg Intravenous An Morgan RN 12:57 PM Fentanyl 50 mcg Intravenous An Morgan RN 12:57 PM Lidocaine 2% 10 ml Subcutaneous Jessy Hernandez MD ASA Classification: CLASS II- Mild systemic disease (i.e. well-controlled diabetes, hypertension, asthma, cigarette smoking) Liliana Score Preprocedure Postprocedure Activity 2- Moves 4 extremities sustained head lift Activity 2- Moves 4 extremities sustained head lift Circulation 2- SBP +/= 20 points of pre-anesthetic level Circulation 2- SBP +/= 20 points of pre-anesthetic level Consciousness 2- Awake and alert oriented x 3 Consciousness 2- Awake and alert oriented x 3 O2 Saturation 2- Able to maintain O2 satruation of 92% on room air O2 Saturation 2- Able to maintain O2 satruation of 92% on room air Respiratory 2- Able to deep breathe and cough well Respiratory 2- Able to deep breathe and cough well Total Score 10 Total Score 10 Contrast Agent: Isovue Diagnostic Contrast: 16 ml Total Contrast: 16 ml Fluoro Dose: 235 mGy Procedure Log Time Note Enter By 12:44 PM Pt arrived to assistant laboratory director 2 at 12:44 tsites 12:44 PM Physician arrived 12:44 tsites 12:44 PM Meet and greet completed tsites 12:44 PM Sign in performed according to hospital policy. tsites 12:44 PM Procedure start 12:44 tsites 12:44 PM Patient charges- Angio tray pack, Navilyst 3mm J, Pulse Oximetry and ACIST tubing and transducer tsites 12:44 PM Alea, Debby RT (R) Position: Monitor Time in: 12:44 tsites 12:44 PM Benjamín Freeman RT (R) Position: Scrub Time in: 12:44 tsites 12:44 PM An Morgan RN Position: Tax Specialist Time in: 12:44 tsites 12:46 PM Vitals capture started with the following parameters, Patient=Adult, Interval=5 min, Initial Cimycgsy=320 mmHg, Deflation Rate=5 mmHg, Cuff placed on Right Arm 12:47 PM HR=60 bpm, VFDK=951/77 mmhg, SpO2=97.0 % 12:52 PM Recorded ECG: HR=62 Condition=Condition 1 12:52 PM HR=66 bpm, IGIT=391/78 mmhg, SpO2=97.0 % 12:56 PM Hair removed from procedure site in holding area using clippers. Bilateral groin prepped with Chloraprep by Debby Cosby ([place]), then patient was draped. Skin intact. tsites 12:57 PM Time: 12:56 Oxygen on at 2 L/min per nasal cannula by An Morgan RN tsites 12:57 PM Time: 12:57 Versed 1 mg Intravenous Given by An Morgan RN tsites 12:57 PM Time: 12:57 Fentanyl 50 mcg Intravenous Given by An Morgan RN tsites 12:57 PM Time: 12:57 Patient comfortable and pain free: Yes tsites 12:57 PM Time: 12:57LOC: 5 = Fully awake and oriented or at pre-proc level tsites 12:57 PM HR=57 bpm, CVEV=589/83 mmhg, FxL3=295.0 % 12:57 PM Pressure channel 1 zeroed. 12:57 PM Pressure channel 2 zeroed. 12:57 PM Clinical Presentation: Non-STEMI tsites 12:57 PM Time out performed according to hospital policy tsites 12:57 PM Time: 12:57 10 ml Lidocaine 2% to right groin Subcutaneous Given by Jessy Hernandez MD tsites 12:59 PM Micro-Introducer Kit utilized for sheath placement tsites 12:59 PM Access obtained by percutaneous puncture. 4Fr 10cm Micro sheath placed in right Femoral artery. [id number] tsites 01:00 PM Sheath exchanged for a 6 Fr 11 cm Terumo [place] sheath [id number] tsites 01:00 PM 2cc of contrast injected in lr 2 cc of contrast injected [place] tsites 01:01 PM 5Fr FL 4 catheter inserted over the wire [facility] tsites 01:01 PM 0.035 145cm Navilyst 3mmJ wire [id number] tsites 01:02 PM HR=57 bpm, NMEQ=011/88 mmhg, SpO2=99.0 % 01:02 PM Recorded Pressure: Ao, HR=61, Condition=Condition 1 (Aorta) Ao 111/60/81 01:03 PM LCA angiography performed in multiple views. tsites 01:03 PM 8cc of contrast for the lca tsites 01:04 PM jwire reinserted catheter removed tsites :05 PM 5Fr FR 4 catheter inserted over the wire DN tsites 01:05 PM RCA angiography performed in multiple views. tsites 01:06 PM Recorded Pressure: Ao, HR=63, Condition=Condition 1 (Aorta) Ao 127/60/86 01:06 PM 3.5 cc of contrast injected for rca tsites 01:07 PM HR=69 bpm, SVCQ=882/79 mmhg, SpO2=99.0 % 01:07 PM jwire reinserted catheter removed tsites 01:07 PM 5Fr Pigtail catheter inserted over the wire DN tsites 01:07 PM Catheter selectively placed in left ventricle tsites 01:07 PM edp measured tsites 01:08 PM Recorded Pressure: LV, HR=75, Condition=Condition 1 (Left Ventricle) LV 125/-3/10 01:08 PM Recorded Pressure: LV, Ao, HR=77, Condition=Condition 1 (Left Ventricle) LV 135/1/4, (Aorta) Ao 139/71/101 01:08 PM Catheter removed tsites 01:08 PM Procedure completed at 13:08 tsites 01:09 PM Did you address CELSA flow and Dominance? Yes tsites 01:09 PM Sign out completed: Radiation Dose 235 mGy Fluoro Time: 1.8 Isovue 370 - 200ml contrast 15.5 ml given by Jessy Hernandez MD. Complications: NoneCardiac Rehab Consult needed: NoConfirmed administered medications: Yes tsites 01:10 PM Isovue 370 - 200ml,1 Bottle(s) used. tsites 01:10 PM Arterial sheath pulled, Mynx closure device used and was Successful S/N. tsites 01:10 PM Estimated Blood Loss: minimal tsites 01:11 PM Post ECG NSR tsites 01:11 PM Post Blood Pressure 140/79 tsites 01:11 PM 13:11 Post Pulses Bilateral DP & PT 1+ tsites 01:11 PM Information taught Cardiac Cath and Mynx tsites 01:11 PM Education needs Procedure, Plan of Care, and Responsibilities of Patient in Care tsites 01:11 PM Learning barriers :None tsites 01:11 PM Education Methods Verbal tsites 01:11 PM Education evaluation Able to repeat information tsites 01:11 PM Site status No bleeding/hematoma - Rt Groin as reported by Benjamín Freeman RT (R) at 13:11 tsites 01:11 PM Opsite applied tsites 01:11 PM Delay to floor No tsites 01:11 PM Patient out of room: 13:11 tsites 01:11 PM Family placed in consult room. tsites 01:12 PM Report given to patricia MEADE Pt taken to 3B Room #35. 13:12 tsites Complications Complication None Hemodynamics Pressures Site Systolic/A Wave Diastolic/V Wave Mean AO 111 60 81 AO 127 60 86 LV 125 -3 10 LV 135 1 4 AO 139 71 101 Post Procedure Information Blood Pressure: 140/79 mmHg Rhythm: NSR Post procedural instructions were given Closure Device Time Device Success/Fail 05/26/2017 1:12:00 PM MynxGrip Successful Site Checks Time Location Status Staff Sheath In? Note 01:11 PM Rt Groin No bleeding/hematoma Benjamín Freeman RT (R) Pulses Time Site Pre-Procedure Post-Procedure Note Bilateral DP & PT 2+ Bilateral radial 2+ 1:11:00 PM Bilateral DP & PT 1+ Updated by Debby Cosby RT (R) on 05/26/2017 1:14:47 PM Debby Cosby RT electronically signed on 05/26/2017 1:18:11 PM with status of Final
--- NOTE | 2017-05-26 17:36 | Internal Med Progress Note ---
Date of Encounter: 05/26/17 Time of Encounter: 11:00 - Assessment and plan (1) Diabetes mellitus Current Visit: Yes Status: Chronic Assessment and plan: Sliding scale insulin, Accu-Cheks before meals at bedtime, diabetic diet. A1c 6.2%. Continue home medications after discharge. Qualifiers: Diabetes mellitus type: type 2 Diabetes mellitus mcc insulin use: without mcc use Diabetes mellitus complication status: with unspecified complications Qualified Code(s): E11.8 - Type 2 diabetes mellitus with unspecified complications (2) DVT prophylaxis Current Visit: Yes Status: Acute Assessment and plan: Heparin subcutaneous every 12 hours. Encourage ambulation (3) Chest pain Current Visit: Yes Status: Acute Assessment and plan: Pt denies chest pain. LHC today, no CAD, no intervention. Should stay overnight to observe renal function. Continue telemetry Cardiology has added amlodipine 5 mg daily, start in the a.m.- Nephrology to approve. Beta susan has been discontinued due to bradycardia Continue to monitor labs Qualifiers: Chest pain type: chest pain due to myocardial ischemia Qualified Code(s): I25.9 - Chronic ischemic heart disease, unspecified (4) Symptomatic bradycardia Current Visit: Yes Status: Acute Assessment and plan: Beta susan has been held. Rate remains in the 60s and 70s. Amlodipine has been added for blood pressure, start in the a.m. LHC negative. Continue telemetry (5) Solitary kidney Current Visit: Yes Status: Chronic Assessment and plan: Chronic. Congenital. Renal function within normal limits. Creatinine 0.99, GFR > than 60. Nephrology following, appreciate her recommendations. Will watch overnight and assess renal function int he a.m. Monitor labs Avoid nephrotoxins. - Time Spent With Patient Total time spent is greater than 50% in coordination of care (as documented) at patient's floor/unit and/or counseling patient: less than 15 minutes - Subjective Interval history: She was seen and assessed at 1100 AM. Patient denies chest pain. Pt is apprehensive about her LHC. She denies shortness of breath, nausea or vomiting, diaphoresis. She denies abdominal pain. - Constitutional Vitals: Temp Pulse Resp BP Pulse Ox 98.7 F 78 18 128/81 95 05/26/17 11:33 05/26/17 11:33 05/26/17 11:33 05/26/17 11:33 04/16/18 11:33 General appearance: Present: cooperative, A&O X 3, pleasant, no acute distress, answers questions appropriately - Head Head exam: Present: atraumatic, normal inspection, normocephalic - Eye Eye exam: Present: normal appearance, conjuntiva pink, sclera anicteric - Neck Neck exam general surgery: Present: supple, trachea midline. Absent: lymphadenopathy - Respiratory Respiratory exam: Present: CTAB. Absent: accessory muscle use, rales, rhonchi, wheezes - Cardiovascular Cardiovascular exam: Present: RRR, +S1, +S2. Absent: diastolic murmur, gallop, rubs, systolic murmur - GI/Abdominal GI/Abdominal exam: Present: normal bowel sounds, soft. Absent: distended, tenderness - Extremities Exam Extremities exam: Present: normal capillary refill, normal inspection, warm, radial pulses palpable and symmetrical. Absent: calf tenderness, cyanotic, pedal edema, tenderness - Neurological Exam Neurological exam: Present: alert, oriented X3, no focal deficits. Absent: altered, facial droop, speech deficit - Skin Skin exam: Present: dry, intact, normal color, warm. Absent: rash Internal Medicine: Result - Labs CBC & Chem 7: 05/26/17 04:16 05/26/17 04:16 Labs: Short CBC 05/26/17 Range/Units 04:16 WBC 9.7 (4.3-11.1) K/mcL Hgb 12.6 (11.5-15.4) g/dL Hct 38.9 (35.3-44.9) % Plt Count 329 (140-400) K/mcL Neutrophils # 6.8 (1.6-8.9) K/mcL BMP 05/26/17 04:16 Sodium 139 Potassium 3.7 Chloride 110 H Carbon Dioxide 22 L BUN 18 Creatinine 0.99 Glucose 102 Calcium 9.2 - ABG Interpretation ABG results: PT/INR, D-dimer PT 12.2 Seconds (9.4-12.1) H 05/24/17 04:16 Consult Discharge Plan - Plan Referrals: Anatoliy Parra MD [Primary Care Provider] -
--- NOTE | 2017-05-26 23:59 | Nephrology Progress Note ---
Date of Encounter: 05/26/17 Time of Encounter: 12:00 - Assessment and Plan (1) CKD (chronic kidney disease) stage 2, GFR 60-89 ml/min Current Visit: Yes Status: Acute SCr improving at 0.99, GFR >60 with IVF, will continue Urine shows no significant proteinuria UOP not documented (2) Bradycardia Current Visit: Yes Status: Acute per cardiology (3) Chest pain Current Visit: Yes Status: Acute Can proceed with LHC today given improving renal fxn Continue IVF and mucomyst Qualifiers: Chest pain type: chest pain due to myocardial ischemia Qualified Code(s): I25.9 - Chronic ischemic heart disease, unspecified (4) Solitary kidney Current Visit: Yes Status: Chronic Subjective Principal diagnosis: Chest pain, bradycardia Interval history: Pt seen and examined with no new complaints Objective - Vital Signs Vital signs: Vital Signs Temp Pulse Resp BP Pulse Ox 05/26/17 23:05 97.9 F 56 16 117/62 94 05/26/17 19:14 98.0 F 72 16 132/76 94 05/26/17 17:45 75 18 135/82 96 05/26/17 16:45 54 95 119/72 16 05/26/17 15:45 52 18 126/77 97 05/26/17 15:15 54 16 151/77 93 05/26/17 14:45 55 16 128/72 95 05/26/17 14:30 55 16 133/77 94 05/26/17 14:15 55 18 130/64 94 05/26/17 14:10 65 16 113/56 95 05/26/17 14:05 57 16 137/80 93 05/26/17 14:00 54 16 99/49 96 05/26/17 11:33 98.7 F 78 18 128/81 95 05/26/17 06:49 97.9 F 56 16 144/79 96 05/26/17 03:34 98.0 F 55 14 124/72 97 Intake and Output 05/26/17 05/26/17 05/26/17 07:59 15:59 23:59 Intake Total 1000 / 1000 240 / 240 Output Total 900 / 900 Balance -900 / -900 1000 / 1000 240 / 240 Intake: IV Fluids 1000 / 1000 0.9 % Sodium Chloride 1,000 ML 1000 / 1000 @ 60 mls/hr IVC .[id number] NIKKIE Rx #:[id number] Oral 240 / 240 Output: Urine 900 / 900 Other: Meal Dinner Percent of Meal Consumed 90% Weight 84 kg Blood Glucose* 88 92 74 Patient Weight 05/26/17 23:59 Weight 84 kg - General Appearance General appearance: Present: well-developed, well-nourished EENT: Present: ATNC, mucous membranes moist Neck: Present: no JVD, supple Respiratory: Present: clear (ant bilat) Cardiology: Present: no edema, normal S1, normal S2 Gastrointestinal: Present: no tenderness, no guarding Integumentary: Present: warm and dry Neurologic: Present: no focal deficit Musculoskeletal: Present: no deformities Psychiatric: Present: mood/affect appropriate, cooperative - Lab 05/26/17 04:16 05/26/17 04:16 Most recent lab results Calcium 9.2 mg/dL (8.6-10.3) 05/26/17 04:16 Magnesium 1.9 mg/dL (1.6-2.6) 05/24/17 04:16 Urine Creatinine 57 mg/dL 05/25/17 16:10 Urine Total Protein 7 mg/dL (1-14) 05/25/17 16:10 Consult Discharge Plan - Plan Referrals: Anatoliy Parra MD [Primary Care Provider] -
[2017-05-27] MEDS: *HR* Heparin 5,000 UNIT/ML VIAL SQ SCH (05:58)
[2017-05-27 06:10] LABS: Basophils # 0.1 K/mcL (0.0-0.2); Basophils % 0.5 %; Eosinophils # 0.2 K/mcL (0.0-0.6); Eosinophils % 2.1 %; Hematocrit 39.8 % (35.3-44.9); Hemoglobin 12.8 g/dL (11.5-15.4); Immature Granulocytes % 0.5 % (0-4); Lymphocytes # 1.5 K/mcL (0.6-4.6); Mean Corpuscular HGB Conc 32.2 g/dL (31.6-35.5); Mean Corpuscular Volume 90.2 fL (83.0-100.0); Mean Platelet Volume 10.1 fL (9.4-12.4); Monocytes # 0.6 K/mcL (0.0-1.3); Monocytes % 5.9 %; Neutrophils # 7.5 K/mcL (1.6-8.9); Platelet Count 324 K/mcL (140-400); Red Blood Count 4.41 M/mcL (3.82-4.97); Red Cell Distribution Width 13.9 % (11.5-14.5)
[2017-05-27 06:34] LABS: BUN/Creatinine Ratio 14 (6-26); Blood Urea Nitrogen 12 mg/dL (8-23); Carbon Dioxide 22 mEq/L (23-29); Chloride 109 mEq/L (98-107); Glucose 89 mg/dL (70-105); Osmolality,Calculated 289 (280-300); Potassium 3.7 mEq/L (3.5-5.1); Sodium 140 mEq/L (136-145); eGFR For African Americans > 60 (> 60); eGFR For Non-African Americans > 60 (> 60)
[2017-05-27] MEDS: Insulin LISPRO 300 UNITS/3 ML VIAL SQ SCH (07:56)
[2017-05-27] MEDS ORDERED: amLODIPine 5 MG TABLET PO SCH (09:00)
[2017-05-27] MEDS: Aspirin Enteric Coated 81 MG Tablet PO SCH (10:12)
[2017-05-27] MEDS: *HR* Acetylcysteine 20% 600 MG/3 ML ORAL SYRINGE PO SCH (10:12)
[2017-05-27] MEDS: Isosorbide MONOnitrate (24 HR) 30 MG TAB.ER.24H PO SCH (10:12)
--- NOTE | 2017-05-27 11:06 | Discharge Summary ---
- NOTES TO OUTPATIENT PROVIDER Notes to Outpatient Provider: Recommend repeat CMP within 1 week to monitor renal function Orders not resulted at time of discharge: Pending orders 05/24/17 06:00 ECG 12 lead ECG [ECG] AM 0600 05/28/17 04:00 Basic Metabolic Panel AM 0400 Complete Blood Count [HEME] AM 0400 Date of Encounter: 05/27/17 Time of Encounter: 11:01 - Discharge Diagnosis (1) CAD (coronary artery disease) Priority: Primary Status: Acute Comments: Follows with cardiology outpatient and plan was for [facility] with possible PCI intervention however both patient and cardiology elected to hold at this time and proceed with medical management given her chronic kidney disease and solitary kidney. Now presented with worsening shortness of breath and chest pain. 05/26/17 [facility] with minimal, nonobstructive CAD. Cont home ASA, statin, nitrate. No BB with bradycardia. Follow-up with cardiology outpatient. Qualifiers: Coronary Disease-Associated Artery/Lesion type: [place] artery [place] vs. transplanted heart: [place] heart Associated angina: without angina Qualified Code(s): I25.10 - Atherosclerotic heart disease of [place] coronary artery without angina pectoris (2) Symptomatic bradycardia Priority: Primary Status: Acute Comments: Symptomatic with lightheadedness, dizziness. Patient reported heart rates in the 40s at home. Heart rate improved with stopping home BB. Cardiology followed. (3) HTN (hypertension) Priority: Primary Status: Acute Comments: per hx. BP stable on low-dose amlodipine. BB stopped due to bradycardia. Recommend follow-up with PCP within 7-10 days for BP recheck Qualifiers: Hypertension type: unspecified Qualified Code(s): I10 - Essential (primary ) hypertension (4) Diabetes mellitus Priority: Secondary Status: Chronic Comments: per hx. Hgb A1c 6.8%. Cont home diabetes medication regimen. 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 congenital. Evaluated by nephrology prior to L who recommended IV fluids and Mucomyst. Per L [facility] notes, minimal contrast was used during procedure. Renal function stable post LHC. Follow-up with nephrology outpatient. Hospital course: See assessment and plan for hospital course Discharge discussed with: patient (Seen and examined at bedside. Patient is new to me, information obtained from chart review and patient report. Says she is weak and tired but overall improved. Would like to go home today. No further chest pain or shortness of breath.) - Time Spent with Patient Total time spent providing and/or coordinating discharge services: - Discharge Medications Prescriptions: amLODIPine [Norvasc] 5 mg PO DAILY #30 tablet Home Medications: GlipiZIDE XL (24 HR) [Glucotrol XL] 2.5 mg PO DAILY 03/12/17 [History] Pantoprazole Sodium 40 mg PO DAILY 03/12/17 [History] Aspirin Enteric Coated [Aspirin EC] 81 mg PO DAILY #30 tablet.dr 03/14/17 [Rx] Atorvastatin [Lipitor] 40 mg PO HS #30 tablet 03/14/17 [Rx] Isosorbide MONOnitrate (24 HR) [Imdur] 30 mg PO DAILY #30 tab.er.24h 03/14/17 [ Rx] amLODIPine [Norvasc] 5 mg PO DAILY #30 tablet 05/27/17 [Rx] Allergies/Adverse Reactions: 3 Allergy/AdvReac Type Severity Reaction Status Date / Time No Known Allergies Allergy Verified 03/12/17 10:05 Date of admission: 05/23/17 20:52 Primary care physician: Anatoliy Parra MD Consults: 05/23/17 21:10 Consult to Physician [CONS] Routine Consulting Provider: Cirilo Milligan Reason for Consult: chest pain -- recurrent; hospitalized in March ; had stress test and EHCO then. Call Completed: No 05/24/17 18:16 Consult to Nephrology [CONS] Routine Consulting Provider: [facility] [place]/ZANDER/SHELBIE/BARRERA Reason for Consult: Pt will need evaluation for solitary kidney prior to [facility] on Friday Time Notified: 18:17 Call Completed: Yes Discharging clinician: Shannan Khan Anticipated date of discharge: 05/27/17 - Constitutional Vitals: Temp Pulse Resp BP Pulse Ox 98.4 F 59 16 133/68 94 05/27/17 07:41 05/27/17 07:41 05/27/17 07:41 05/27/17 07:41 05/27/17 07:41 General appearance: Present: cooperative, A&O X 3, pleasant, no acute distress, answers questions appropriately - Head Head exam: Present: atraumatic, normocephalic - Eye Eye exam: Present: PERRL, conjuntiva pink, sclera anicteric Pupils: Present: PERRL - Neck Neck exam general surgery: Present: supple, trachea midline. Absent: lymphadenopathy - Respiratory Respiratory exam: Present: CTAB. Absent: accessory muscle use, rales, rhonchi, wheezes - Cardiovascular Cardiovascular exam: Present: RRR, +S1, +S2. Absent: diastolic murmur, gallop, rubs, systolic murmur - GI/Abdominal GI/Abdominal exam: Present: normal bowel sounds, soft, no peritoneal signs. Absent: distended, tenderness - Extremities Exam Extremities exam: Present: warm, radial pulses palpable and symmetrical. Absent : calf tenderness, cyanotic, pedal edema - Neurological Exam Neurological exam: Present: CN II-XII intact, oriented X3, no focal deficits. Absent: pronater drift, facial droop, speech deficit - Skin Skin exam: Present: dry, intact - Patient Status Disposition: Home, Self-Care Condition: Good Functional capacity at discharge: independent ambulation Overall status at discharge: patient is progressing back to baseline - Discharge Instructions Instructions: Amlodipine (By mouth), Bradycardia (DC), Coronary Artery Disease (DC) Follow Up With: Anatoliy Parra MD [Primary Care Provider] - (Please call for follow-up appointment within 7-10 days) - Diet and Activity Activity: increase activity as tolerated Diet: diabetic diet, low fat, low cholesterol
[2017-05-27 11:20] VITALS: BP 124/73
--- NOTE | 2017-05-30 08:50 | Electrocardiograph Report ---
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
== END 2017-05-27 13:53 | disposition home or self-care (01) ==
LOC: EMEROO 14:32 → 3BNU 14:32
PROVIDERS: ADMIT Internal Medicine; ATTEND Registered Nurse

== ENCOUNTER 2018-09-12 16:27 | Observation (INO) ==
[2018-09-12] MEDS ORDERED: *HR* Promethazine 25 MG/ML VIAL IVP ONE (16:43)
[2018-09-12] MEDS ORDERED: 0.9 % Sodium Chloride 1,000 ML IVC ONE ×2 (16:43→20:23)
[2018-09-12] MEDS ORDERED: Famotidine 20 MG/2 ML VIAL IVP ONE (16:43)
[2018-09-12 17:17] LABS: Bilirubin,Urine Negative (Negative); Blood,Urine Negative (Negative); Clarity,Urine Cloudy (Clear); Color,Urine Yellow (Yellow); Glucose,Urine (UA) Normal (Normal); Ketones,Urine 15 mg/dL (Negative); Leukocyte Esterase,Urine Large (Negative); Nitrite,Urine Negative (Negative); Protein,Urine 30 mg/dL (Neg-Trace); Specific Gravity,Urine 1.018 (1.010-1.025); Urobilinogen,Urine Normal (Normal)
--- NOTE | 2018-09-12 17:17 | Emergency Department Note ---
Disposition Clinical Impression: Dehydration, Near syncope, Swallowing difficulty, Nausea & vomiting, Vertigo, Cerumen impaction Disposition: Admitted As Inpatient Condition: Fair Forms: ED Satisfaction Letter Time of Disposition: 20:20 General Adult HPI - General Chief complaint: ED Nausea/Vomiting/Diarrhea Stated complaint: nausea,vomitting Time Seen by Provider: 09/12/18 16:31 Source: patient, EMS Limitations: no limitations Nursing Notes Reviewed: Yes Vital Signs Reviewed: Yes - History of Present Illness HPI Narrative: Patient presented emergency department with chief complaint of multiple different things. The patient states that she has had progressive issues with feeling like food is starting to get stuck in her esophagus, with difficulty with swallowing, she states that this is been worsening again for over a week. The patient states that she in May had surgery in [place] where they did a robotic-assisted surgery to place a implant into her esophagus to help prevent this. She states that she just moved back here within the last 1 month, has seen a GI doctor here for a similar symptoms previously but has not had a scope since her procedure. The patient states that yesterday she started having right ear pain and has a history of some problems with ear infection she put some drops in her ears immediately thereafter her right ear started hurting worse she became acutely very dizzy, started to feel like she was spinning and started having intractable nausea and vomiting which has persisted all throughout today. She states that her abdomen feels full and there is a tightness across her upper abdomen. No significant chest pain or shortness of breath but her upper abdominal pain does slightly go into her chest. She states that this reminds her of when she had problems with her esophagus. She reports having had a normal bowel movement today, but reports she has not been passing gas. She states that her emesis has had a little bit of potential dark red to brown appearance almost rust colored. No gross hematemesis. Patient denies any black or bloody stool. She denies any urinary symptoms. She denies any leg pain or leg swelling. She denies any pleuritic symptoms in her chest. She denies fevers. She denies significant headache but still complains of right ear pain. She states that she feels incredibly dizzy. She has been admitted to the hospital several times in the past for intractable nausea vomiting and vertigo. The family states she could not even get up and walk today and had to call the paramedics because she was so dizzy and was very tired in appearance as well. She has had no unilateral numbness or weakness. No reported trauma. Pain Scale: 0 - Related Data Home Medications Medication Instructions Recorded Confirmed GlipiZIDE XL (24 HR) [Glucotrol XL] 2.5 mg PO DAILY 03/12/17 05/23/17 Pantoprazole Sodium 40 mg PO DAILY 03/12/17 05/23/17 Previous Rx's Medication Instructions Recorded Aspirin Enteric Coated [Aspirin EC] 81 mg PO DAILY #30 tablet.dr 03/14/17 Atorvastatin [Lipitor] 40 mg PO HS #30 tablet 03/14/17 Isosorbide MONOnitrate (24 HR) 30 mg PO DAILY #30 tab.er.24h 03/14/17 [Imdur] amLODIPine [Norvasc] 5 mg PO DAILY #30 tablet 05/27/17 Allergies Allergy/AdvReac Type Severity Reaction Status Date / Time No Known Allergies Allergy Verified 03/12/17 10:05 All systems ED: reviewed and negative except as stated. Review of Systems: As Per HPI Past Medical History - Past Medical History Medical history: Reports: DVT, diabetes, hyperlipidemia, hypertension, renal disease Surgical history: Reports: hysterectomy Psychiatric history: Reports: no psych history - Social History Smoking Status: 2nd Hand Smoke Exposure Smokeless Tobacco Status: No Alcohol use: Reports: none Drug use: Reports: none Physical Exam - General Limitations: no limitations General appearance: alert, in no apparent distress, other (Does have an emesis bag at the bedside, which reveals slight [id number] emesis also a lot of clear emesis.) - Head Head exam: atraumatic - Eye Eye exam: Present: normal appearance, PERRL, EOMI, nystagmus, other (Significant noted nystagmus with rightward gaze, horizontal in nature, no rotary or vertical nystagmus. Extraocular movements are completely intact, visual edwards are intact) - ENT ENT exam: normal exam, normal oropharynx, other (Large amount of cerumen, impacted on the right, unable to visualize the right tympanic membranes seco ndary to significant cerumen impaction, left hepatic membranes normal appearance.) - Neck Neck exam: Present: normal inspection, full ROM, other (No carotid bruits). Absent: meningismus - Chest Chest inspection: Present: normal inspection, symmetric chest wall rise - Respiratory Respiratory exam: Present: normal lung sounds bilaterally. Absent: respiratory distress - Cardiovascular Cardiovascular exam: Present: regular rate, normal rhythm, systolic murmur (2/6 systolic murmur no rubs or gallops). Absent: bradycardia, tachycardia - Abdominal Exam Abdominal exam: Present: soft, tenderness (Mild epigastric tenderness, which reports makes her feel nauseated, no rebound guarding or peritoneal sign), other (Abdomen soft and nondistended with normal bowel sounds. No obvious palpable or pulsatile masses, well-healed microscopic scars on the abdomen.). Absent: Non-Tender - Rectal Exam Rectal exam: Present: deferred - Extremities Exam Extremities exam: Present: normal inspection, full ROM, normal capillary refill. Absent: tenderness, pedal edema - Expanded Lower Extremity Exam Hip/Pelvis exam: Present: normal inspection Upper leg exam: Present: normal inspection Knee exam: Present: normal inspection Lower leg exam: Present: normal inspection Ankle exam: Present: normal inspection Foot/toe exam: Present: normal inspection, full ROM. Absent: tenderness, swelling Neurovascular/Tendon exam: Present: normal capillary refill, other (No obvious pass pointing or pronator drift, normal strength sensation and reflexes no cran ial nerve abnormality normal speech.). Absent: pulse deficit, motor deficit, sensory deficit Course Vital Signs Temperature 97.6 F 09/12/18 16:44 Pulse Rate 94 09/12/18 16:44 Respiratory Rate 18 09/12/18 16:44 Blood Pressure 145/85 09/12/18 16:44 O2 Sat by Pulse Oximetry 100 09/12/18 16:44 Temperature 97.6 F 09/12/18 16:44 Pulse Rate 83 09/12/18 19:31 Respiratory Rate 18 09/12/18 16:44 Blood Pressure 135/80 09/12/18 19:31 O2 Sat by Pulse Oximetry 96 09/12/18 19:31 Oxygen Delivery Oxygen Delivery Room Air Medical Decision Making - [facility] Narrative Medical decision making narrative: Patient had an IV placed she was given IV Phenergan for nausea and dizziness, by mouth meclizine, and IV Pepcid. She was given IV fluids. EKG was a normal sinus rhythm with no evidence of acute ischemic dysrhythmia or hyperkalemia as interpreted by myself. QRS duration is 78, QTC is 465, heart rate of 96, no evidence of ST elevation or ST depression and T-wave inversion, no hyperkalemia, no evidence of Wellens syndrome or Brugada pattern. Patient was sent for head CT secondary to severe dizziness and nausea and vomiting, abdominal CT scan secondary to nausea vomiting abdominal fullness and recent abdominal surgery, basic laboratory studies were ordered. Basic laboratory studies were all within acceptable limits. Urinalysis question evidence of UTI patient does not have any urinary symptoms, this was sent for a culture. We were able to completely remove all cerumen from the right ear canal, and right tympanic membranes normal appearance thereafter. CT of the head showed no acute findings although it did demonstrate large wax within the right ear canal, Patient reports improvement of her symptoms after all the above management, she was given a by mouth challenge which she struggled with solids was able to tolerate liquids, and an ambulation trial was initiated, with ambulation, the patient had to be helped several times she stopped and almost passed out 4 times during a very brief walk, she was placed back in bed where her symptoms resolved, she received [place] reports that this felt like near syncope and did not feel like a spinning sensation and her nystagmus has resolved and her ear pain is resolved, secondary to recurrent near syncopal events with ambulation, difficulty with swallowing, she will be admitted to the hospital for further evaluation and management. - Lab Data Result diagrams: 09/12/18 16:52 09/12/18 16:52 Lab Results 09/12/18 09/12/18 09/12/18 Range/Units 16:46 16:52 16:52 WBC 15.3 H (4.3-11.1) K/mcL RBC 4.44 (3.82-4.97) M/mcL Hgb 13.2 (11.5-15.4) g/dL Hct 41.2 (35.3-44.9) % MCV 92.8 (83.0-100.0) fL MCH 29.7 (28.0-33.3) pg MCHC 32.0 (31.6-35.5) g/dL RDW 13.7 (11.5-14.5) % Plt Count 386 (140-400) K/mcL MPV 10.5 (9.4-12.4) fL Immature Gran % 0.5 (0-4) % Seg Neutrophils % 82.3 % Lymphocytes % 11.3 % Monocytes % 4.9 % Eosinophils % 0.5 % Basophils % 0.5 % Neutrophils # 12.6 H (1.6-8.9) K/mcL Lymphocytes # 1.7 (0.6-4.6) K/mcL Monocytes # 0.8 (0.0-1.3) K/mcL Eosinophils # 0.1 (0.0-0.6) K/mcL Basophils # 0.1 (0.0-0.2) K/mcL Sodium 141 (136-145) mEq/L Potassium 3.5 (3.5-5.1) mEq/L Chloride 102 (98-107) mEq/L Carbon Dioxide 21 L (23-29) mEq/L BUN 14 (8-23) mg/dL Creatinine 1.09 (0.60-1.20) mg/dL Est GFR ( Amer) > 60 (> 60) Est GFR (Non-Af Amer) 50 L (> 60) BUN/Creatinine Ratio 13 (6-26) Glucose 190 H (70-105) mg/dL POC Glucose 180 H (70-99) mg/dL Calculated Osmolality 298 (280-300) Calcium 9.8 (8.6-10.3) mg/dL Magnesium 1.9 (1.6-2.6) mg/dL Total Bilirubin 0.4 (0.3-1.0) mg/dL Direct Bilirubin 0.1 (0.0-0.2) mg/dL Indirect Bilirubin 0.3 (0.0-1.2) mg/dL AST 15 (13-39) Units/L ALT 9 (7-52) Units/L Alkaline Phosphatase 83 (34-104) Units/L Troponin I < 0.03 (< 0.04) ng/mL Serum Total Protein 7.6 (6.4-8.9) g/dL Albumin 4.1 (3.5-5.7) g/dL Globulin 3.5 (2.4-3.5) g/dL Albumin/Globulin Ratio 1.2 (1.1-2.2) Lipase 61 (11-82) Units/L Urine Color (Yellow) Urine Clarity (Clear) Urine pH (5.0-8.0) pH Units Ur Specific [place] (1.010-1.025) Urine Protein (Neg-Trace) mg/dL Urine Glucose (UA) (Normal) mg/dL Urine Ketones (Negative) mg/dL Urine Blood (Negative) Urine Nitrite (Negative) Urine Bilirubin (Negative) Urine Urobilinogen (Normal) mg/dL Ur Leukocyte Esterase (Negative) Urine Microscopic RBC (0-3) per hpf Urine Microscopic WBC (0-3) per hpf Ur Squamous Epith Cells (None-Few) per lpf Urine Bacteria (None-Few) per hpf Hyaline Casts (None-Few) per lpf Ur Culture Indicated? (NO) 09/12/18 Range/Units 17:06 WBC (4.3-11.1) K/mcL RBC (3.82-4.97) M/mcL Hgb (11.5-15.4) g/dL Hct (35.3-44.9) % MCV (83.0-100.0) fL MCH (28.0-33.3) pg MCHC (31.6-35.5) g/dL RDW (11.5-14.5) % Plt Count (140-400) K/mcL MPV (9.4-12.4) fL Immature Gran % (0-4) % Seg Neutrophils % % Lymphocytes % % Monocytes % % Eosinophils % % Basophils % % Neutrophils # (1.6-8.9) K/mcL Lymphocytes # (0.6-4.6) K/mcL Monocytes # (0.0-1.3) K/mcL Eosinophils # (0.0-0.6) K/mcL Basophils # (0.0-0.2) K/mcL Sodium (136-145) mEq/L Potassium (3.5-5.1) mEq/L Chloride (98-107) mEq/L Carbon Dioxide (23-29) mEq/L BUN (8-23) mg/dL Creatinine (0.60-1.20) mg/dL Est GFR ( Amer) (> 60) Est GFR (Non-Af Amer) (> 60) BUN/Creatinine Ratio (6-26) Glucose (70-105) mg/dL POC Glucose (70-99) mg/dL Calculated Osmolality (280-300) Calcium (8.6-10.3) mg/dL Magnesium (1.6-2.6) mg/dL Total Bilirubin (0.3-1.0) mg/dL Direct Bilirubin (0.0-0.2) mg/dL Indirect Bilirubin (0.0-1.2) mg/dL AST (13-39) Units/L ALT (7-52) Units/L Alkaline Phosphatase (34-104) Units/L Troponin I (< 0.04) ng/mL Serum Total Protein (6.4-8.9) g/dL Albumin (3.5-5.7) g/dL Globulin (2.4-3.5) g/dL Albumin/Globulin Ratio (1.1-2.2) Lipase (11-82) Units/L Urine Color Yellow (Yellow) Urine Clarity Cloudy A (Clear) Urine pH 7.0 (5.0-8.0) pH Units Ur Specific [place] 1.018 (1.010-1.025) Urine Protein 30 H (Neg-Trace) mg/dL Urine Glucose (UA) Normal (Normal) mg/dL Urine Ketones 15 H (Negative) mg/dL Urine Blood Negative (Negative) Urine Nitrite Negative (Negative) Urine Bilirubin Negative (Negative) Urine Urobilinogen Normal (Normal) mg/dL Ur Leukocyte Esterase Large H (Negative) Urine Microscopic RBC 3-5 H (0-3) per hpf Urine Microscopic WBC TNTC H (0-3) per hpf Ur Squamous Epith Cells Many H (None-Few) per lpf Urine Bacteria None Seen (None-Few) per hpf Hyaline Casts Moderate H (None-Few) per lpf Ur Culture Indicated? YES A (NO)
[2018-09-12 17:22] LABS: Bacteria,Urine None Seen per hpf (None-Few); Hyaline Casts,Urine Moderate per lpf (None-Few); Squamous Epithelial Cell,Urine Many per lpf (None-Few); WBC,Urine TNTC per hpf (0-3)
[2018-09-12 17:23] LABS: Basophils # 0.1 K/mcL (0.0-0.2); Basophils % 0.5 %; Eosinophils # 0.1 K/mcL (0.0-0.6); Eosinophils % 0.5 %; Hematocrit 41.2 % (35.3-44.9); Hemoglobin 13.2 g/dL (11.5-15.4); Immature Granulocytes % 0.5 % (0-4); Lymphocytes # 1.7 K/mcL (0.6-4.6); Lymphocytes % 11.3 %; Mean Corpuscular Hemoglobin 29.7 pg (28.0-33.3); Mean Corpuscular Volume 92.8 fL (83.0-100.0); Mean Platelet Volume 10.5 fL (9.4-12.4); Monocytes # 0.8 K/mcL (0.0-1.3); Monocytes % 4.9 %; Neutrophils # 12.6 K/mcL (1.6-8.9); Platelet Count 386 K/mcL (140-400); Red Blood Count 4.44 M/mcL (3.82-4.97); Red Cell Distribution Width 13.7 % (11.5-14.5); Segmented Neutrophils % 82.3 %; White Blood Count 15.3 K/mcL (4.3-11.1)
[2018-09-12 17:46] LABS: Alanine Aminotransferase 9 Units/L (7-52); Albumin 4.1 g/dL (3.5-5.7); Albumin/Globulin Ratio 1.2 (1.1-2.2); Alkaline Phosphatase 83 Units/L (34-104); Aspartate Amino Transferase 15 Units/L (13-39); BUN/Creatinine Ratio 13 (6-26); Bilirubin,Direct 0.1 mg/dL (0.0-0.2); Bilirubin,Indirect 0.3 mg/dL (0.0-1.2); Bilirubin,Total 0.4 mg/dL (0.3-1.0); Blood Urea Nitrogen 14 mg/dL (8-23); Calcium 9.8 mg/dL (8.6-10.3); Carbon Dioxide 21 mEq/L (23-29); Chloride 102 mEq/L (98-107); Globulin 3.5 g/dL (2.4-3.5); Glucose 190 mg/dL (70-105); Lipase 61 Units/L (11-82); Magnesium 1.9 mg/dL (1.6-2.6); Osmolality,Calculated 298 (280-300); Potassium 3.5 mEq/L (3.5-5.1); Sodium 141 mEq/L (136-145); Total Protein 7.6 g/dL (6.4-8.9); Troponin I < 0.03 ng/mL (< 0.04); eGFR For African Americans > 60 (> 60); eGFR For Non-African Americans 50 (> 60)
[2018-09-12] MEDS ORDERED: *HR* Dextrose 50 % in Water (Syg) 50 ML SYRINGE IVP PRN (21:18)
[2018-09-12] MEDS ORDERED: traMADol 50 MG TABLET PO PRN (21:18)
[2018-09-12] MEDS ORDERED: Dextrose Gel 15 GM/37.5 ML TUBE PO PRN ×2 (21:18)
[2018-09-12] MEDS ORDERED: Acetaminophen 325 MG TABLET PO PRN (21:18)
[2018-09-12] MEDS ORDERED: Ondansetron 4 MG/2 ML VIAL IVP PRN (21:19)
[2018-09-12] MEDS ORDERED: Ringers Solution, Lactated 1,000 ML IVC SCH (21:30)
[2018-09-12] MEDS ORDERED: Pantoprazole 40 MG VIAL IVP ONE (21:32)
--- NOTE | 2018-09-12 21:43 | Internal Med History&Physical ---
Date of Encounter: 09/12/18 Time of Encounter: 21:42 Internal Medicine - H&P: HPI Chief complaint: dizziness Admitted From: Home Plans for Post Hospital Care: Home History of present illness: Olimpia Watkins is a 72 year old woman with diabetes, hypertension and a solitary right kidney who has chronic GERD requiring prior endoscopic procedures and 4 months ago underwent an endoscopic surgical intervention for a hiatal hernia and reportedly had a band placed around the GE junction for her reflux. She presents to the ER today stating that she developed acute onset dizziness, lightheadedness and lethargy with nausea and vomiting since 2pm today. She said the symptoms started when she stood up from a seated position. She denied associated chest pain, headache, fever and chills. Her daughter says that she became so weak that she was unable to walk around for which reasons EMS was called. She remained hemodynamically stable in the ER however she had ongoing vomiting and her blood work was grossly unremarkable except an isolated WBC of 15.3. Abdomen CT showed no acute anomalies. She is admitted for observation. She reports that her vomitus appeared rust colored. Vitals: Reviewed General: Asthenic appearing woman lying in bed in NAD Skin: Warm, dry. HEENT: Slightly dry mucous membranes. Mild conjunctivae pallor. Neck: No lymphadenopathy. No JVD. No carotid bruits. No palpable thyroid. Chest: Normal thoracic expansion. Normal breath sounds. Clear to auscultation. Heart: Normal S1 & S2; rhythmic. No rubs or murmurs. Abdomen: Non-distended, soft and non-tender to palpation. No peritoneal reaction. Extremities: No clubbing, cyanosis or edema. No calf tenderness. Normal distal p ulses. Neurological: Awake, alert and oriented to person, place and time. No focal deficits. Psych: Affect appropriate. Assessment/Plan 1. Lightheadedness: No acute focal deficits present. Seems to be related with her nausea/vomiting picture. Imaging studies are negative. Her electrolytes are within normal limits. There may be a component of orthostasis since the symptoms commenced upon standing from a seated position. Will check orthostatic vitals. Keep her on IVF through the night. Monitor on telemetry. 2. Nausea/vomiting: Previously incessant but has seemingly subsided. Will ensure we keep up with her fluid losses. May be related with her prior GE junction surgery as she feels some discomfort in her epigastrium of recent. It may be beneficial she be plugged back in with the GI service as an outpatient. If she vomits again we will test it for blood. Give a dose of IV PPI tonight. 3. Leukocytosis: Isolated elevation but no signs of infection present. Unclear reactionary to her acute vomiting episode. Will monitor after getting fluids. 4. Abnormal UA: The patient denies subprapubic pain and dysuria. She reports no changes with her urine or any clinical symptoms concerning for a UTI. Unclear if the specimen was obtained in a sterile fashion. Monitor. No indication for antibiotics at this time. Past Med Surg Social Fam HX - Past Medical History Medical history: DVT, diabetes, hyperlipidemia, hypertension, renal disease Additional medical history: 1 kidney, appendectomy, stage 2 kidney disease Psychiatric history: no psych history - Past Surgical History Surgical History: hysterectomy Additional surgical history: esophageal implant, one kidney - Social History Smoking Status: 2nd Hand Smoke Exposure Smokeless Tobacco Status: No Alcohol use: none Drug use: none - Family History Mother History Unknown: Yes Hx Family Cancer: Yes (colon and breast) Internal Medicine - H&P: Meds GlipiZIDE XL (24 HR) [Glucotrol XL] 2.5 mg PO DAILY 03/12/17 [History] Aspirin Enteric Coated [Aspirin EC] 81 mg PO DAILY #30 tablet. 03/14/17 [Rx] Atorvastatin [Lipitor] 40 mg PO HS #30 tablet 03/14/17 [Rx] Isosorbide MONOnitrate (24 HR) [Imdur] 30 mg PO DAILY #30 tab.er.24h 03/14/17 [Rx] amLODIPine [Norvasc] 5 mg PO DAILY #30 tablet 05/27/17 [Rx] Cholecalciferol (Vitamin D3) [Vitamin D] 1,000 unit PO DAILY 09/12/18 [History] Ergocalciferol (VITAMIN D2) [Vitamin D2] 50,000 unit PO QWEEK 09/12/18 [History] Lisinopril [Zestril] 10 mg PO DAILY 09/12/18 [History] Magnesium Oxide [Magnesium] 500 mg PO DAILY 09/12/18 [History] Allergy/AdvReac Type Severity Reaction Status Date / Time No Known Allergies Allergy Verified 03/12/17 10:05 All Systems PM: A 10-system review of systems was performed and is negative for pertinent findings except as documented above in the HPI. - Constitutional Vitals: Temp Pulse Resp BP Pulse Ox 97.9 F 71 16 121/74 93 09/12/18 21:06 09/12/18 21:06 09/12/18 21:06 09/12/18 21:06 09/12/18 21:06 Exam: . Internal Med - H&P Results - Labs CBC & Chem 7: 09/12/18 16:52 09/12/18 16:52 Labs: Short CBC 09/12/18 Range/Units 16:52 WBC 15.3 H (4.3-11.1) K/mcL Hgb 13.2 (11.5-15.4) g/dL Hct 41.2 (35.3-44.9) % Plt Count 386 (140-400) K/mcL Neutrophils # 12.6 H (1.6-8.9) K/mcL BMP 09/12/18 16:52 Sodium 141 Potassium 3.5 Chloride 102 Carbon Dioxide 21 L BUN 14 Creatinine 1.09 Glucose 190 H Calcium 9.8 Cardiac Enzymes 09/12/18 Range/Units 16:52 Troponin I < 0.03 (< 0.04) ng/mL Liver Function 09/12/18 Range/Units 16:52 Total Bilirubin 0.4 (0.3-1.0) mg/dL Direct Bilirubin 0.1 (0.0-0.2) mg/dL AST 15 (13-39) Units/L ALT 9 (7-52) Units/L Alkaline Phosphatase 83 (34-104) Units/L Albumin 4.1 (3.5-5.7) g/dL Urine 09/12/18 Range/Units 17:06 Urine Color Yellow (Yellow) Urine Clarity Cloudy A (Clear) Urine pH 7.0 (5.0-8.0) pH Units Ur Specific [place] 1.018 (1.010-1.025) Urine Protein 30 H (Neg-Trace) mg/dL Urine Glucose (UA) Normal (Normal) mg/dL - Impressions ITS Impressions Abdomen/Pelvis CT 09/12/18 16:42 IMPRESSION: 1. No acute abnormality in the abdomen or pelvis. 2. Postoperative changes at the gastroesophageal junction. 3. Status post hysterectomy. 4. Severely atrophic left kidney. 5. Colonic diverticulosis. D/ / Gilbert Leggett MD / Gilbert Leggett MD Interpreting Provider: Gilbert Leggett MD Chest X-Ray 09/12/18 16:42 IMPRESSION: No acute process. D/ / Gilbert Leggett MD / Gilbert Leggett MD Interpreting Provider: Gilbert Leggett MD Head CT 09/12/18 16:42 IMPRESSION: No acute intracranial abnormality. D/ / Soto Greene MD / Soto Greene MD Interpreting Provider: Soto Greene MD - Time Spent With Patient Total time spent is greater than 50% in coordination of care (as documented) at patient's floor/unit and/or counseling patient:
[2018-09-13] MEDS: Insulin LISPRO 300 UNITS/3 ML VIAL SQ SCH ×3 (08:21→18:43)
[2018-09-13] MEDS: amLODIPine 5 MG TABLET PO SCH (08:22)
[2018-09-13] MEDS: Magnesium Oxide 400 MG TABLET PO SCH (08:26)
[2018-09-13] MEDS: Isosorbide MONOnitrate (24 HR) 30 MG TAB.ER.24H PO SCH (08:26)
[2018-09-13] MEDS: Cholecalciferol (D-3) 1,000 UNIT (25MCG) TABLET PO SCH (08:26)
[2018-09-13] MEDS: Aspirin Enteric Coated 81 MG Tablet PO SCH (08:26)
[2018-09-13 10:57] LABS: Basophils # 0.1 K/mcL (0.0-0.2); Basophils % 0.6 %; Eosinophils # 0.1 K/mcL (0.0-0.6); Eosinophils % 0.9 %; Hematocrit 36.8 % (35.3-44.9); Immature Granulocytes % 0.4 % (0-4); Lymphocytes % 19.2 %; Mean Corpuscular HGB Conc 30.2 g/dL (31.6-35.5); Mean Corpuscular Hemoglobin 29.5 pg (28.0-33.3); Mean Corpuscular Volume 97.9 fL (83.0-100.0); Mean Platelet Volume 10.6 fL (9.4-12.4); Monocytes # 0.5 K/mcL (0.0-1.3); Monocytes % 5.2 %; Neutrophils # 7.6 K/mcL (1.6-8.9); Platelet Count 272 K/mcL (140-400); Red Blood Count 3.76 M/mcL (3.82-4.97); Red Cell Distribution Width 14.2 % (11.5-14.5); Segmented Neutrophils % 73.7 %; White Blood Count 10.3 K/mcL (4.3-11.1)
[2018-09-13 10:58] LABS: Hemoglobin 11.1 g/dL (11.5-15.4)
[2018-09-13 11:18] LABS: BUN/Creatinine Ratio 10 (6-26); Blood Urea Nitrogen 10 mg/dL (8-23); Carbon Dioxide 24 mEq/L (23-29); Chloride 110 mEq/L (98-107); Glucose 85 mg/dL (70-105); Osmolality,Calculated 292 (280-300); Potassium 3.9 mEq/L (3.5-5.1); Sodium 142 mEq/L (136-145); eGFR For African Americans > 60 (> 60); eGFR For Non-African Americans 53 (> 60)
[2018-09-13] MEDS: Cortisporin *EAR*Susp 10 ML BOTTLE LEFT EAR SCH ×3 (15:07→19:51)
[2018-09-13] MEDS: Cortisporin *EAR*Susp 10 ML BOTTLE RIGHT EAR SCH ×2 (15:07→19:51)
--- NOTE | 2018-09-13 19:33 | Internal Med Progress Note ---
Hospitalist Progress Note - Encounter Date of Encounter: 09/13/18 Time of Encounter: 15:45 - Subjective Interval History: Ms June and does a prior history of vertigo was on meclizine until she self discontinued. Revealed orthostatic blood pressure measurements on revealing. She stated her dizziness is much improved. GEN: Denies fever, chills or malaise HEENT: Denies headache blurriness, or dysphagia RESP: Denies SOB or cough CV: Denies chest pain or palpitations GI: Denies Nausea, vomiting, diarrhea or constipation Reviewed current in hospital medications with modifications see orders Reviewed Routine labs - Exam Vitals: Temp Pulse Resp BP Pulse Ox 99.1 F 62 16 102/60 95 09/13/18 15:06 09/13/18 15:06 09/13/18 15:06 09/13/18 15:06 09/13/18 15:06 Exam: GEN: NAD, A&O x 3, Pleasant and conversant Otoscopic exam: Right ear EAC, slightly perforated tympanic membrane cloudy with slight erythema. Left ear EAC TMI mild congestion SKIN: [place] warm acyanotic not jaundice HEART: RRR, no murmurs LUNGS: CTA no wheeze or crackles, overall non labored ABDOMEN; Soft, non tender or distended, BS x 4 normactive EXT: No LE edema, Pedal pulses 1+, radial pulses 2+ PSYCH: Mood and affect is appropriate - Assessment and Plan (1) Vertigo Current Visit: Yes Status: Acute Assessment and Plan: Patient with known history of vertigo work up so far has been unrevealing, including CT head, CT abdomen and pelvis, chest x-ray. Orthostatic blood pressure measurement was also unrevealing. She does admit to slight improvement after hydration and this cerumen disimpaction. We will order meclizine as needed. Patient does admit to occasional congestion discussed without possibility of outpatient treatment with first generation antihistamine (2) Cerumen impaction Current Visit: Yes Status: Acute Assessment and Plan: The patient was disimpacted at the ED, otoscopic examination of the right tympanic membrane appears to be slightly perforated cloudy with slight erythema, topical Cortisporin suspension ordered (3) Diabetes mellitus Current Visit: Yes Status: Chronic (4) CKD (chronic kidney disease) stage 2, GFR 60-89 ml/min Current Visit: Yes Status: Acute Assessment and Plan: Patient has solitary kidney per H&P serum creatinine is normal we will continue to trend (5) Hypertension Current Visit: Yes Status: Acute (6) DVT prophylaxis Current Visit: Yes Status: Acute Assessment and Plan: Heparin (7) Pyuria Current Visit: Yes Status: Acute Assessment and Plan: She denies any dysuria urinary does reveal many epithelial squamous cells as such the validity is questionable we will await culture and sensitivity prior to initiating antibiotics. She is afebrile and her leukocytosis resolved with hydration - Time Spent with Patient Total time spent is greater than 50% in coordination of care (as documented) at patient's floor/unit and/or counseling patient: Internal Medicine: Result - Labs CBC & Chem 7: 09/13/18 10:28 09/13/18 10:28 Labs: Short CBC 09/13/18 Range/Units 10:28 WBC 10.3 (4.3-11.1) K/mcL Hgb 11.1 L D (11.5-15.4) g/dL Hct 36.8 (35.3-44.9) % Plt Count 272 (140-400) K/mcL Neutrophils # 7.6 (1.6-8.9) K/mcL BMP 09/13/18 10:28 Sodium 142 Potassium 3.9 Chloride 110 H Carbon Dioxide 24 BUN 10 Creatinine 1.03 Glucose 85 Calcium 9.0 Consult Discharge Plan - Plan Referrals: NONE,PCP [Primary Care Provider] - (2) Cerumen impaction Qualifiers: Laterality: bilateral Qualified Code(s): H61.23 - Impacted cerumen, bilateral (3) Diabetes mellitus Qualifiers: Diabetes mellitus type: type 2 Diabetes mellitus assisted insulin use: without assisted use Diabetes mellitus complication status: with unspecified complications (5) Hypertension Qualifiers: Hypertension type: essential hypertension Qualified Code(s): I10 - Essential (primary) hypertension
[2018-09-13] MEDS: *HR* Heparin 5,000 UNIT/ML VIAL SQ SCH (19:49)
[2018-09-13] MEDS ORDERED: Insulin LISPRO 300 UNITS/3 ML VIAL SQ SCH (21:00)
[2018-09-14 04:27] LABS: Basophils # 0.1 K/mcL (0.0-0.2); Basophils % 0.9 %; Eosinophils # 0.2 K/mcL (0.0-0.6); Eosinophils % 1.8 %; Hematocrit 35.8 % (35.3-44.9); Hemoglobin 11.2 g/dL (11.5-15.4); Immature Granulocytes % 0.4 % (0-4); Lymphocytes # 2.4 K/mcL (0.6-4.6); Lymphocytes % 25.9 %; Mean Corpuscular HGB Conc 31.3 g/dL (31.6-35.5); Mean Corpuscular Hemoglobin 30.1 pg (28.0-33.3); Mean Corpuscular Volume 96.2 fL (83.0-100.0); Mean Platelet Volume 10.3 fL (9.4-12.4); Monocytes # 0.6 K/mcL (0.0-1.3); Monocytes % 5.9 %; Neutrophils # 6.1 K/mcL (1.6-8.9); Platelet Count 320 K/mcL (140-400); Red Blood Count 3.72 M/mcL (3.82-4.97); Segmented Neutrophils % 65.1 %; White Blood Count 9.3 K/mcL (4.3-11.1)
[2018-09-14 04:44] LABS: Calcium 9.2 mg/dL (8.6-10.3); Potassium 3.8 mEq/L (3.5-5.1)
[2018-09-14] MEDS: *HR* Heparin 5,000 UNIT/ML VIAL SQ SCH (05:40)
[2018-09-14] MEDS: Insulin LISPRO 300 UNITS/3 ML VIAL SQ SCH ×2 (08:53→12:45)
[2018-09-14] MEDS: Cortisporin *EAR*Susp 10 ML BOTTLE LEFT EAR SCH ×2 (09:00→12:55)
[2018-09-14] MEDS: Isosorbide MONOnitrate (24 HR) 30 MG TAB.ER.24H PO SCH (09:01)
[2018-09-14] MEDS: Aspirin Enteric Coated 81 MG Tablet PO SCH (09:01)
[2018-09-14] MEDS: Cortisporin *EAR*Susp 10 ML BOTTLE RIGHT EAR SCH ×2 (09:01→12:55)
[2018-09-14] MEDS: amLODIPine 5 MG TABLET PO SCH (09:01)
[2018-09-14] MEDS: Cholecalciferol (D-3) 1,000 UNIT (25MCG) TABLET PO SCH (09:01)
[2018-09-14] MEDS: Magnesium Oxide 400 MG TABLET PO SCH (09:01)
--- NOTE | 2018-09-14 12:30 | Discharge Summary ---
- NOTES TO OUTPATIENT PROVIDER Notes to Outpatient Provider: Posthospital discharge for vertigo, pyuria noted on UA although with numerous epithelial cells. Cultures are pending patient is asymptomatic she was never started on any antimicrobial therapy Orders not resulted at time of discharge: Pending orders 09/12/18 17:06 Culture,Urine [RM] Stat Date of Encounter: 09/14/18 Time of Encounter: 11:30 - Discharge Diagnosis (1) Vertigo Priority: Primary Status: Acute Assessment and Plan: Patient with known history of vertigo work up so far has been unrevealing, including CT head, CT abdomen and pelvis, chest x-ray. Orthostatic blood pressure measurement was also unrevealing. She does admit to slight improvement after hydration and this cerumen disimpaction. We will order meclizine as needed. Patient does admit to occasional congestion discussed without possibility of outpatient treatment with first generation antihistamine (2) Cerumen impaction Priority: Secondary Status: Acute Assessment and Plan: The patient was disimpacted at the ED, otoscopic examination of the right tympanic membrane appears to be slightly perforated cloudy with slight erythema, topical Cortisporin suspension ordered, will DC on to complete a 5 days Qualifiers: Laterality: bilateral Qualified Code(s): H61.23 - Impacted cerumen, bilateral (3) Diabetes mellitus Priority: Secondary Status: Chronic Assessment and Plan: Was managed with insulin per protocol will discharge back on glipizide Qualifiers: Diabetes mellitus type: type 2 Diabetes mellitus rn long term care insulin use: without [place] [facility] use Diabetes mellitus complication status: without complication Qualified Code(s): E11.9 - Type 2 diabetes mellitus without complications (4) CKD (chronic kidney disease) stage 2, GFR 60-89 ml/min Priority: Secondary Status: Acute Assessment and Plan: Patient has solitary kidney per H&P serum creatinine is normal we will continue to trend, serum creatinine on discharge is 1.13 (5) Hypertension Priority: Secondary Status: Acute Assessment and Plan: BPs normotensive continue amlodipine and lisinopril Qualifiers: Hypertension type: essential hypertension Qualified Code(s): I10 - Essential (primary) hypertension (6) DVT prophylaxis Priority: Secondary Status: Acute Assessment and Plan: will discharge today (7) Pyuria Priority: Secondary Status: Acute Assessment and Plan: She denies any dysuria urinary does reveal many epithelial squamous cells as such the validity is questionable we will await culture and sensitivity prior to initiating antibiotics. She is afebrile and her leukocytosis resolved with hydration. Cardiac microbiology department this morning decided that her cultures was a send out and still pending. To call me tomorrow with preliminary report. Discussed options with the patient she will be discharged and if cultures is positive she will be called in antimicrobial therapy. She stated right now she is getting established with a primary care physician as an appointment for September 24. Of note she recently relocated back from [place]. She is currently living with her daughter and her daughter's family however she is interested in getting a home place she would like to speak to case management regarding housing opportunities Hospital course: Ms. Watkins is a 72 year old female was hospitalized for dizziness she endorses a history of vertigo and stated that symptoms were similar to her prior vertigo symptoms. Workup including orthostatic blood pressure measurement, CT head CT abdomen and pelvis and chest x-ray were all all unrevealing. She was started back on meclizine. Also during her encounter in the ED she was noted to have cerumen impaction and was disimpacted at the ED. Upon evaluation with the Otoscope was unable to have some slight tympanic membrane erythema congestion and slight perforation in the right TM. She was started on topical corticosporin ear drops. Patient stated that she recently relocated back from [place] and resides with her daughter and her daughter's family. She stated that she would like to get her own place citing family stresses. She would like to speak to case management regarding housing opportunity Discharge discussed with: patient, nurse, social work, case management - Time Spent with Patient Total time spent providing and/or coordinating discharge services: 37 mins Specific discharge activities: keep all the outpatient follow-up appointments and take medications as prescribed. Based on your urine culture will notify you if you need antimicrobial treatment tomorrow. Please return to the ED if you experience any fevers chills burning while urinating or bloody urine - Discharge Medications Prescriptions: New Meclizine [Antivert] 25 mg PO TID PRN #90 tablet PRN Reason: Vertigo Pete/Poly/HC *EAR* SUSP [Cortisporin *EAR* Susp] 2 drop RIGHT EAR QID 7 Days #5 ml Continued Magnesium Oxide [Magnesium] 500 mg PO DAILY Aspirin Enteric Coated [Aspirin EC] 81 mg PO DAILY #30 tablet. Isosorbide MONOnitrate (24 HR) [Imdur] 30 mg PO DAILY #30 tab.er.24h Atorvastatin [Lipitor] 40 mg PO HS #30 tablet amLODIPine [Norvasc] 5 mg PO DAILY #30 tablet Lisinopril [Zestril] 10 mg PO DAILY #30 tablet Changed GlipiZIDE XL (24 HR) [Glucotrol XL] 1 tab PO DAILY #30 tab.er.24 Cholecalciferol (Vitamin D3) [Vitamin D3] 1 cap PO DAILY #30 capsule Discontinued Ergocalciferol (VITAMIN D2) [Vitamin D2] 50,000 unit PO QWEEK Home Medications: Magnesium Oxide [Magnesium] 500 mg PO DAILY 09/12/18 [History] Aspirin Enteric Coated [Aspirin EC] 81 mg PO DAILY #30 tablet. 09/14/18 [Rx] Atorvastatin [Lipitor] 40 mg PO HS #30 tablet 09/14/18 [Rx] Cholecalciferol (Vitamin D3) [Vitamin D3] 1 cap PO DAILY #30 capsule 09/14/18 [Rx] GlipiZIDE XL (24 HR) [Glucotrol XL] 1 tab PO DAILY #30 tab.er.24 09/14/18 [Rx] Isosorbide MONOnitrate (24 HR) [Imdur] 30 mg PO DAILY #30 tab.er.24h 09/14/18 [Rx] Lisinopril [Zestril] 10 mg PO DAILY #30 tablet 09/14/18 [Rx] Meclizine [Antivert] 25 mg PO TID PRN #90 tablet 09/14/18 [Rx] Pete/Poly/HC *EAR* SUSP [Cortisporin *EAR* Susp] 2 drop RIGHT EAR QID 7 Days #5 ml 09/14/18 [Rx] amLODIPine [Norvasc] 5 mg PO DAILY #30 tablet 09/14/18 [Rx] Allergies/Adverse Reactions: Allergy/AdvReac Type Severity Reaction Status Date / Time No Known Allergies Allergy Verified 03/12/17 10:05 Date of admission: 09/12/18 20:37 Primary care physician: PCP NONE Discharging clinician: Yimi Garcia - Constitutional Vitals: Temp Pulse Resp BP Pulse Ox 98.0 F 58 16 138/63 95 09/14/18 08:20 09/14/18 08:20 09/14/18 08:20 09/14/18 08:20 09/14/18 08:20 Exam: GEN: NAD, A&O x 3, Pleasant and conversant SKIN: [place] warm acyanotic not jaundice HEART: RRR, no murmurs LUNGS: CTA no wheeze or crackles, overall non labored ABDOMEN; Soft, non tender or distended, BS x 4 normactive EXT: No LE edema, Pedal pulses 1+, radial pulses 2+ PSYCH: Mood and affect is appropriate - Patient Status Disposition: Home, Self-Care Condition: Good Functional capacity at discharge: independent ambulation Overall status at discharge: patient is back to baseline - Discharge Instructions Follow Up With: NONE,PCP [Primary Care Provider] - - Diet and Activity Activity: resume usual activities as tolerated Diet: diabetic diet, low fat, low cholesterol, low salt diet
[2018-09-14 12:38] VITALS: BP 120/72
--- NOTE | 2018-09-15 06:25 | Electrocardiograph Report ---
[employer] [facility] Test Date: 2018-09-12 Pat Name: Olimpia Watkins Department: [id number] Room: 3A24 Gender: F [employer]: : [id number] Requested By: Arturo Barker Order Number: [id number] Reading MD: Klever Mendoza Measurements Intervals [place] Rate: 96 P: 41 [place]: 175 QRS: 41 QRSD: 78 T: 52 QT: 368 QTc: 465 Interpretive Statements Sinus rhythm Electronically Signed On 09-15-2018 6:24:18 EDT by Klever Mendoza
== END 2018-09-14 16:36 | disposition home or self-care (01) ==
LOC: 3ANU 16:27 → EMEROOARM 16:27 → SUATTDRO 20:37 → 3ANU 21:03
PROVIDERS: ADMIT Internal Medicine; ATTEND Pharmacist

== ENCOUNTER 2020-08-29 16:00 | Observation (INO) ==
[2020-08-29] MEDS ORDERED: Ondansetron 4 MG/2 ML VIAL IVP ONE (16:48)
[2020-08-29] MEDS: 0.9 % Sodium Chloride 1,000 ML IVC SCH ×4 (17:08→22:04)
[2020-08-29 17:31] LABS: Basophils # 0.1 K/mcL (0.0-0.2); Basophils % 0.5 %; Eosinophils # 0.1 K/mcL (0.0-0.6); Eosinophils % 0.4 %; Hematocrit 39.4 % (35.3-44.9); Hemoglobin 12.2 g/dL (11.5-15.4); Immature Granulocytes % 0.7 % (0-4); Lymphocytes # 1.2 K/mcL (0.6-4.6); Lymphocytes % 6.9 %; Mean Corpuscular Hemoglobin 29.3 pg (28.0-33.3); Mean Corpuscular Volume 94.7 fL (83.0-100.0); Mean Platelet Volume 10.1 fL (9.4-12.4); Monocytes # 0.8 K/mcL (0.0-1.3); Monocytes % 4.8 %; Neutrophils # 14.6 K/mcL (1.6-8.9); Platelet Count 315 K/mcL (140-400); Red Blood Count 4.16 M/mcL (3.82-4.97); Red Cell Distribution Width 13.5 % (11.5-14.5); Segmented Neutrophils % 86.7 %; White Blood Count 16.8 K/mcL (4.3-11.1)
[2020-08-29 17:53] LABS: BUN/Creatinine Ratio 9 (6-26); Blood Urea Nitrogen 10 mg/dL (8-23); Calcium 8.5 mg/dL (8.6-10.3); Carbon Dioxide 23 mEq/L (23-29); Chloride 109 mEq/L (98-107); Glucose 129 mg/dL (70-105); Osmolality,Calculated 291 (280-300); Potassium 4.1 mEq/L (3.5-5.1); Sodium 140 mEq/L (136-145); Troponin I < 0.03 ng/mL (< 0.04); eGFR For African Americans > 60 (> 60); eGFR For Non-African Americans 50 (> 60)
[2020-08-29 19:03] LABS: Bilirubin,Urine Negative (Negative); Blood,Urine Negative (Negative); Clarity,Urine Clear (Clear); Color,Urine Light-Yellow (Yellow); Glucose,Urine (UA) Normal (Normal); Ketones,Urine Negative (Negative); Leukocyte Esterase,Urine Small (Negative); Mucus,Urine Few per lpf (None-Few); Nitrite,Urine Negative (Negative); Protein,Urine 30 mg/dL (Neg-Trace); Specific Gravity,Urine 1.018 (1.010-1.025); Squamous Epithelial Cell,Urine Few per hpf (None-Few)
[2020-08-29] MEDS ORDERED: Dextrose Gel 15 GM/37.5 ML TUBE PO PRN ×2 (20:53)
[2020-08-29] MEDS ORDERED: D5% in Water 1,000 ML IVC PRN (20:53)
[2020-08-29] MEDS ORDERED: *HR* Dextrose 50 % in Water (Vial) 50 ML VIAL IVP PRN (20:53)
[2020-08-29] MEDS ORDERED: cefTRIAXone 1,000 MG in 0.9 % Sodium Chloride Mini Bag 100 ML IVPB ONE (21:00)
[2020-08-29] MEDS ORDERED: *HR* Promethazine 25 MG/ML VIAL IM PRN (21:22)
[2020-08-29] MEDS ORDERED: Melatonin 3 MG TABLET PO PRN (21:22)
[2020-08-29] MEDS ORDERED: Naloxone 0.4 MG/ML INJ IVP PRN (21:22)
[2020-08-29] MEDS ORDERED: Acetaminophen 325 MG TABLET PO PRN (21:22)
[2020-08-29] MEDS ORDERED: Ondansetron 4 MG/2 ML VIAL IVP PRN (21:22)
[2020-08-29] MEDS: Insulin LISPRO 300 UNITS/3 ML VIAL SUBQ SCH (21:44)
[2020-08-30 01:33] LABS: Basophils % 0.3 %; Eosinophils # 0.1 K/mcL (0.0-0.6); Eosinophils % 0.8 %; Hematocrit 36.9 % (35.3-44.9); Hemoglobin 11.7 g/dL (11.5-15.4); Immature Granulocytes % 0.6 % (0-4); Lymphocytes # 2.1 K/mcL (0.6-4.6); Lymphocytes % 15.2 %; Mean Corpuscular HGB Conc 31.7 g/dL (31.6-35.5); Mean Corpuscular Volume 94.6 fL (83.0-100.0); Mean Platelet Volume 10.3 fL (9.4-12.4); Monocytes # 0.8 K/mcL (0.0-1.3); Monocytes % 5.5 %; Neutrophils # 10.9 K/mcL (1.6-8.9); Platelet Count 317 K/mcL (140-400); Red Cell Distribution Width 13.6 % (11.5-14.5); Segmented Neutrophils % 77.6 %
[2020-08-30 01:52] LABS: BUN/Creatinine Ratio 8 (6-26); Blood Urea Nitrogen 8 mg/dL (8-23); Calcium 8.7 mg/dL (8.6-10.3); Carbon Dioxide 23 mEq/L (23-29); Chloride 112 mEq/L (98-107); Glucose 96 mg/dL (70-105); Osmolality,Calculated 290 (280-300); Potassium 3.9 mEq/L (3.5-5.1); Sodium 141 mEq/L (136-145); eGFR For African Americans > 60 (> 60); eGFR For Non-African Americans 57 (> 60)
[2020-08-30] MEDS: Magnesium Oxide 400 MG TABLET PO SCH (07:31)
[2020-08-30] MEDS: Isosorbide MONOnitrate (24 HR) 30 MG TAB.ER.24H PO SCH (07:31)
[2020-08-30] MEDS: Insulin LISPRO 300 UNITS/3 ML VIAL SUBQ SCH ×4 (07:31→21:13)
[2020-08-30] MEDS: Cholecalciferol (D-3) 1,000 UNIT (25MCG) TABLET PO SCH (07:31)
[2020-08-30] MEDS: amLODIPine 5 MG TABLET PO SCH (07:31)
[2020-08-30] MEDS: lisinopriL 10 MG TABLET PO SCH (07:31)
[2020-08-30] MEDS: Aspirin Enteric Coated 81 MG Tablet PO SCH (07:31)
[2020-08-30] MEDS: 0.9 % Sodium Chloride 1,000 ML IVC SCH ×2 (07:36→07:38)
[2020-08-30 08:31] LABS: Magnesium 1.8 mg/dL (1.6-2.6); Phosphorous 2.9 mg/dL (2.7-4.5)
[2020-08-30 08:44] LABS: Thyroid Stimulating Hormone 0.766 mcIU/mL (0.340-5.600)
[2020-08-31 01:02] LABS: Hematocrit 35.6 % (35.3-44.9); Hemoglobin 11.3 g/dL (11.5-15.4); Mean Corpuscular HGB Conc 31.7 g/dL (31.6-35.5); Mean Corpuscular Hemoglobin 30.2 pg (28.0-33.3); Mean Corpuscular Volume 95.2 fL (83.0-100.0); Mean Platelet Volume 10.2 fL (9.4-12.4); Platelet Count 292 K/mcL (140-400); Red Blood Count 3.74 M/mcL (3.82-4.97); Red Cell Distribution Width 13.8 % (11.5-14.5); White Blood Count 9.7 K/mcL (4.3-11.1)
[2020-08-31 01:20] LABS: Calcium 8.9 mg/dL (8.6-10.3); Magnesium 2.3 mg/dL (1.6-2.6); Phosphorous 3.3 mg/dL (2.7-4.5); Potassium 4.1 mEq/L (3.5-5.1)
[2020-08-31] MEDS: amLODIPine 5 MG TABLET PO SCH (07:35)
[2020-08-31] MEDS: Isosorbide MONOnitrate (24 HR) 30 MG TAB.ER.24H PO SCH (07:35)
[2020-08-31] MEDS: Cholecalciferol (D-3) 1,000 UNIT (25MCG) TABLET PO SCH (07:35)
[2020-08-31] MEDS: lisinopriL 10 MG TABLET PO SCH (07:35)
[2020-08-31] MEDS: Magnesium Oxide 400 MG TABLET PO SCH (07:35)
[2020-08-31] MEDS: Aspirin Enteric Coated 81 MG Tablet PO SCH (07:35)
[2020-08-31 08:03] LABS: Estimated Average Glucose 143 mg/dl; Hemoglobin A1C 6.6 %
[2020-08-31] MEDS: Insulin LISPRO 300 UNITS/3 ML VIAL SUBQ SCH (08:22)
[2020-08-31 08:34] VITALS: BP 122/70; PULSE 64; TEMP 97.8; O2SAT 98
== END 2020-08-31 11:25 | disposition home or self-care (01) ==
LOC: EMEROOARM 16:00 → 3ANU 16:00 → SUATTDRO 20:11 → 3ANU 21:08
PROVIDERS: ADMIT Family Medicine; ATTEND Internal Medicine

== ENCOUNTER 2021-07-24 11:28 | Observation (INO) ==
[2021-07-24] MEDS ORDERED: Ringers Solution, Lactated 1,000 ML IVC ONE ×2 (11:42→15:56)
[2021-07-24] MEDS ORDERED: methylPREDNISolone 125 MG/2 ML VIAL IVP ONE (11:50)
[2021-07-24 12:16] LABS: Bilirubin,Urine Negative (Negative); Blood,Urine Negative (Negative); Clarity,Urine Clear (Clear); Color,Urine Yellow (Yellow); Glucose,Urine (UA) Normal (Normal); Ketones,Urine Negative (Negative); Leukocyte Esterase,Urine Negative (Negative); Mucus,Urine Few per lpf (None-Few); Nitrite,Urine Negative (Negative); PH,Urine 5.5 pH Units (5.0-8.0); Protein,Urine 30 mg/dL (Neg-Trace); RBC,Urine 0-3 per hpf (0-3); Specific Gravity,Urine 1.023 (1.010-1.025); Squamous Epithelial Cell,Urine Few per hpf (None-Few); WBC,Urine 0-3 per hpf (0-3)
[2021-07-24 12:26] LABS: Basophils # 0.1 K/mcL (0.0-0.2); Basophils % 0.5 %; Eosinophils # 0.1 K/mcL (0.0-0.6); Eosinophils % 0.7 %; Hematocrit 43.7 % (35.3-44.9); Hemoglobin 13.7 g/dL (11.5-15.4); Immature Granulocytes % 0.8 % (0-4); Lymphocytes # 2.3 K/mcL (0.6-4.6); Lymphocytes % 15.9 %; Mean Corpuscular HGB Conc 31.4 g/dL (31.6-35.5); Mean Corpuscular Hemoglobin 29.3 pg (28.0-33.3); Mean Corpuscular Volume 93.6 fL (83.0-100.0); Mean Platelet Volume 10.2 fL (9.4-12.4); Monocytes # 0.8 K/mcL (0.0-1.3); Monocytes % 5.3 %; Neutrophils # 11.2 K/mcL (1.6-8.9); Platelet Count 382 K/mcL (140-400); Red Blood Count 4.67 M/mcL (3.82-4.97); Segmented Neutrophils % 76.8 %; White Blood Count 14.6 K/mcL (4.3-11.1)
[2021-07-24 13:07] LABS: BUN/Creatinine Ratio 9 (6-26); Blood Urea Nitrogen 11 mg/dL (8-23); Calcium 9.4 mg/dL (8.6-10.3); Carbon Dioxide 24 mEq/L (23-29); Chloride 106 mEq/L (98-107); Glucose 161 mg/dL (70-105); Osmolality,Calculated 293 (280-300); Potassium 3.9 mEq/L (3.5-5.1); Sodium 140 mEq/L (136-145); Troponin I < 0.03 ng/mL (< 0.04); eGFR For African Americans 55 (> 60); eGFR For Non-African Americans 45 (> 60)
[2021-07-24] MEDS ORDERED: Iopamidol - 370 500 ML MLS IVP ONE (13:19)
[2021-07-24 14:09] LABS: Influenza A PCR Negative (Negative); Influenza B PCR Negative (Negative); Resp. Syncytial Virus PCR Negative (Negative)
[2021-07-24 15:19] LABS: SARS-CoV-2 by PCR (In House) Negative (Negative)
[2021-07-24] MEDS ORDERED: Acetaminophen 325 MG TABLET PO PRN (16:54)
[2021-07-24] MEDS ORDERED: *HR* Dextrose 50 % in Water (Syg) 50 ML SYRINGE IVP PRN (16:54)
[2021-07-24] MEDS ORDERED: D5% in Water 1,000 ML IVC PRN (16:54)
[2021-07-24] MEDS ORDERED: Naloxone 0.4 MG/ML INJ IVP PRN (16:54)
[2021-07-24] MEDS ORDERED: Ondansetron 4 MG/2 ML VIAL IVP PRN (16:54)
[2021-07-24] MEDS ORDERED: Dextrose Gel 15 GM/37.5 ML TUBE PO PRN ×2 (16:54)
[2021-07-24] MEDS: *HR* Heparin 5,000 UNIT/ML VIAL SQ SCH (18:43)
[2021-07-25] MEDS: *HR* Heparin 5,000 UNIT/ML VIAL SQ SCH ×2 (06:42→17:38)
[2021-07-25 07:16] LABS: Basophils % 0.1 %; Hematocrit 43.4 % (35.3-44.9); Hemoglobin 13.6 g/dL (11.5-15.4); Immature Granulocytes % 0.8 % (0-4); Lymphocytes # 1.9 K/mcL (0.6-4.6); Lymphocytes % 9.3 %; Mean Corpuscular HGB Conc 31.3 g/dL (31.6-35.5); Mean Corpuscular Hemoglobin 29.2 pg (28.0-33.3); Mean Corpuscular Volume 93.1 fL (83.0-100.0); Mean Platelet Volume 10.4 fL (9.4-12.4); Monocytes # 0.7 K/mcL (0.0-1.3); Monocytes % 3.3 %; Neutrophils # 17.8 K/mcL (1.6-8.9); Platelet Count 416 K/mcL (140-400); Red Blood Count 4.66 M/mcL (3.82-4.97); Red Cell Distribution Width 14.1 % (11.5-14.5); Segmented Neutrophils % 86.5 %; White Blood Count 20.6 K/mcL (4.3-11.1)
[2021-07-25 07:39] LABS: BUN/Creatinine Ratio 14 (6-26); Blood Urea Nitrogen 14 mg/dL (8-23); Calcium 9.6 mg/dL (8.6-10.3); Carbon Dioxide 20 mEq/L (23-29); Chloride 109 mEq/L (98-107); Glucose 131 mg/dL (70-105); Magnesium 1.9 mg/dL (1.6-2.6); Osmolality,Calculated 292 (280-300); Phosphorous 3.2 mg/dL (2.7-4.5); Potassium 3.7 mEq/L (3.5-5.1); Sodium 140 mEq/L (136-145); Troponin I 0.03 ng/mL (< 0.04); eGFR For African Americans > 60 (> 60); eGFR For Non-African Americans 54 (> 60)
[2021-07-25] MEDS: lisinopriL 10 MG TABLET PO SCH (08:24)
[2021-07-25] MEDS: Aspirin Enteric Coated 81 MG Tablet PO SCH (08:24)
[2021-07-25] MEDS: Insulin LISPRO 300 UNITS/3 ML VIAL SUBQ SCH ×3 (09:53→16:53)
[2021-07-25 13:12] LABS: Thyroid Stimulating Hormone 0.396 mcIU/mL (0.340-5.600)
[2021-07-26] MEDS: *HR* Heparin 5,000 UNIT/ML VIAL SQ SCH ×2 (05:01→17:34)
[2021-07-26] MEDS: Insulin LISPRO 300 UNITS/3 ML VIAL SUBQ SCH ×3 (07:35→16:27)
[2021-07-26] MEDS: Aspirin Enteric Coated 81 MG Tablet PO SCH (09:40)
[2021-07-26] MEDS: lisinopriL 10 MG TABLET PO SCH (09:40)
[2021-07-26 09:53] LABS: Basophils # 0.1 K/mcL (0.0-0.2); Basophils % 0.7 %; Eosinophils # 0.3 K/mcL (0.0-0.6); Hematocrit 40.9 % (35.3-44.9); Hemoglobin 12.7 g/dL (11.5-15.4); Immature Granulocytes % 0.9 % (0-4); Lymphocytes # 2.5 K/mcL (0.6-4.6); Lymphocytes % 18.5 %; Mean Corpuscular HGB Conc 31.1 g/dL (31.6-35.5); Mean Corpuscular Hemoglobin 29.3 pg (28.0-33.3); Mean Corpuscular Volume 94.2 fL (83.0-100.0); Mean Platelet Volume 10.1 fL (9.4-12.4); Monocytes # 0.6 K/mcL (0.0-1.3); Monocytes % 4.7 %; Platelet Count 341 K/mcL (140-400); Red Blood Count 4.34 M/mcL (3.82-4.97); Red Cell Distribution Width 14.4 % (11.5-14.5); Segmented Neutrophils % 73.2 %; White Blood Count 13.7 K/mcL (4.3-11.1)
[2021-07-26 11:13] LABS: Albumin 3.6 g/dL (3.5-5.7); Albumin/Globulin Ratio 1.1 (1.1-2.2); Bilirubin,Total 0.5 mg/dL (0.3-1.0); Calcium 9.1 mg/dL (8.6-10.3); Globulin 3.3 g/dL (2.4-3.5); Potassium 3.7 mEq/L (3.5-5.1); Total Protein 6.9 g/dL (6.4-8.9)
[2021-07-26 11:14] VITALS: TEMP 97.6
[2021-07-26] MEDS ORDERED: Isosorbide MONOnitrate (24 HR) 30 MG TAB.ER.24H PO SCH (13:15)
[2021-07-26 15:17] VITALS: BP 131/84; PULSE 76; O2SAT 94
[2021-07-27] MEDS ORDERED: Isosorbide MONOnitrate (24 HR) 60 MG TAB.ER.24H PO SCH (09:00)
== END 2021-07-26 18:41 | disposition home or self-care (01) ==
LOC: 3BNU 11:28 → EMEROOARM 11:28 → 3BNU 18:26
PROVIDERS: ADMIT Hospitalist; ATTEND Hospitalist